=== PATIENT | male | born 1960 | race Caucasian/White ===

== ENCOUNTER 2017-06-05 16:05 | Inpatient (IN) | payer OTHER ==
[~2017-06-05] VITALS: Ht 170.2 cm; Wt 97.5 kg
[~2017-06-05 16:05] MED LIST: AUGMENTIN 875 M1 TAB PO; BACTRIM DS 8001 TAB PO; JANUVIA 100MG100 MG PO; KEFLEX500 MG PO; METFORMIN HCL500 MG PO; METFORMIN1000 MG PO; MOTRIN800 MG PO
[2017-06-05 16:39] LABS: ABSOLUTE BASOPHIL COUNT 0.1 /CUMM (0.0-0.2); ABSOLUTE EOSINOPHIL COUNT 0.1 /CUMM (0.0-0.7); ABSOLUTE GRANULOCYTE CT 18.9 /CUMM (1.4-6.5); ABSOLUTE LYMPH COUNT 1.4 /CUMM (1.2-3.4); ABSOLUTE MONOCYTE COUNT 1.4 /CUMM (0.10-0.60); BASOPHIL % 0.3 % (0.0-2.0); EOSINOPHIL % 0.2 % (0-5); GRANULOCYTE % 86.4 % (42.2-75.2); HEMATOCRIT 39.2 % (42-52); MEAN CORPUSCULAR HGB 32.2 PG (27.0-31.0); MEAN CORPUSCULAR HGB CONC 34.2 G/DL (33.0-37.0); MEAN CORPUSCULAR VOLUME 94.1 FL (80.0-94.0); MEAN PLATELET VOLUME 9.1 FL (7.4-10.4); PLATELET COUNT 256 /CUMM (130-400); RED BLOOD CELL CT 4.16 /CUMM (4.70-6.10); WHITE BLOOD CELL COUNT 21.9 /CUMM (4.8-10.8)
--- NOTE | 2017-06-05 17:28 | RADIOLOGY REPORT ---
EXAMINATION: XR TOES, LEFT CLINICAL INFORMATION: Left second necrotic toe COMPARISON: None TECHNIQUE: 3 views of the left toes were obtained. FINDINGS: There is prominent gas in the soft tissues which is centered at the second digit, although it extends in the dorsal soft tissues proximally along the metatarsal. There is prominent soft tissue swelling. There is no acute fracture or dislocation. No osseous erosion. IMPRESSION: Prominent soft tissue swelling of the forefoot with soft tissue gas surrounding the second digit and extending more proximally at the dorsum of the foot along the metatarsal level. No erosive osseous changes are noted. This critical result was discussed with Zack Alvares by telephone at 06/05/2017 5:22 PM and it was ascertained that the content and urgency of the report was understood at the time of direct communication.
--- NOTE | 2017-06-05 19:07 | ED ANKLE/FOOT INJURY COMPLAINT ---
History of Present Illness General Chief Complaint: Foot or Ankle Injury Stated Complaint: L FOOT PAIN Source: patient, old records Exam Limitations: no limitations Vital Signs & Intake/Output Vital Signs & Intake/Output Vital Signs Date Time Temp Pulse Resp B/P B/P Pulse O2 O2 Flow FiO2 Mean Ox Delivery Rate 06/05 2000 98.4 105 18 132/72 97 Room Air 06/05 1618 99.7 70 18 150/80 95 Room Air Allergies Coded Allergies: NO KNOWN ALLERGIES (04/20/15) Reconcile Medications AMOXICILLIN/POTASSIUM CLAV (Augmentin 875-125 Tablet) 875 MG/125 MG TAB 1 TAB PO BID Skin infection Ibuprofen (Motrin) 800 MG TAB 1 TAB PO Q8H PRN PAIN/SWELLING Metformin Hydrochloride (Metformin HCl) 500 MG TAB 1 TAB PO BID Diabetes mellitus Sitagliptin Phosphate (Januvia) 100 MG TAB 1 TAB PO DAILY diabetes mellitus Triage Note: 56 YO MALE TO TRIAGE FROM DR MALHOTRA FOR ?GANGRENE OF SECOND TOE ON L FOOT. STATES HX OF DIABETES. STATES HE NOTICIED AN ULCER ON HIS FOOT 2 DAYS AGO THAT HAS NOW SPEAD TO THE TOE. SECOND TOE ON L FOOT NOTED TO BE BLUE WITH LARGE ULCER. PT DENIES PAIN TO FOOT. Triage Nurses Notes Reviewed? yes Occurred: just prior to arrival Duration: day(s): (2), constant Timing: recent history Severity: severe Severity Numbers: 10 Pain/Injury Location: Left: Foot. Method of Injury: unknown No Modifying Factors: none Associated Symptoms: swelling, redness HPI: 56-year-old male with history of diabetes for which she is not on any medication sent in by primary care for evaluation of his left foot. He states that yesterday he first noticed an abrasion to his foot and discoloration to his left toe. He denies any known injury or trauma. He states that his toes normally have decreased sensation. He denies any fevers chills nausea vomiting abdominal pain. He does not check his blood sugar on a regular basis no chest pain or shortness of breath (Zack Umana) Past History Travel History Traveled to [place] past 21 day No Medical History Any Pertinent Medical History? 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 No (Zack Umana) Review of Systems Review of Systems Constitutional: Reports: see HPI. Comments Review of systems: See HPI, All other systems negative. Constitutional, no chills no fever, no malaise HEENT: no sore throat no congestion, no ear pain Cardiovascular: No chest pain , no palpitation Skin: see hpi Respiratory: No dyspnea no cough no sputum GI: No nausea no vomiting, no diarrhea, no bloating/constipation : No dysuria No hematuria, no frequency Muscle skeletal: No joint pain, no back pain, no neck pain, Neurologic: , no headache Psych: No stress no depression,. Heme/endocrine: No bruising no bleeding Immunology: No lymphadenopathy (Zack Umana) Physical Exam Physical Exam General Appearance: well developed/nourished, alert, awake Leg/Knee/Thigh Left: see below Comments: Well-developed well-nourished patient in no apparent distress. HEENT: Atraumatic, extraocular motion intact Neck: Supple, FROM Back: FROM Cardiovascular: Regular rate and rhythms no murmurs rubs or gallops, Respiratory: Chest nontender.There were no bony deformities, no asymmetry. No respiratory distress. Patient speaking in full complete sentences. Breath sounds clear to auscultation bilaterally: NO W/R/R Upper Extremities: full range of motion Hip/Pelvis: Atraumatic/Stable. FROM. Knee: Atraumatic/stable. FROM. No joint swelling, no effusion. Leg: There is redness noted to the anterior aspect of both the left knapp, no weeping, Nontender. 3+ B/L LE EDEMA, 5 out of 5 strength in the lower extremity, normal dorsiflexion of great toe bilaterally, gross sensation is intact, patellar tendon reflex 2+ bilaterally. Ankle/Foot: Swelling noted to the left foot on the left foot the left second toe is cold, purple with no sensation, there is discolorationg over the medial l1st toe as well, there is weeping discharge at the site of the 2 open areas on the left foot at the base of the l 2nd toe and l mid foot. No laxity on exam Pulses: Normal/equal DP/PT pulses bilaterally. Brisk cap refill Neuro: awake, alert, and oriented to person, place and time. There were no obvious focal neurologic abnormalities. Skin: Warm & dry;No appreciable rash on exposed skin Psych: Mood affect normal, normal memory normal judgment. (Dia BRENNER,Zack) Progress Differential Diagnosis: DVT, gout, fracture, dislocation, sprain, OSTEOMYELITIS, GANGRENE Plan of Care: Orders Procedure Date/time Status Nothing by Mouth 06/06 B Active Pathway - chart 06/05 2130 Active House Staff 06/05 2130 Active Patient Data 06/05 2130 Active Patient Data 06/05 2104 Active Intake & Output 06/05 1954 Active OXYGEN SETUP (GEN) 06/05 1925 Active Saline Lock 06/05 1925 Active Admit to inpatient 06/05 1925 Active Vital Signs 06/05 1925 Active Activity/Ambulation 06/05 1925 Active Code Status 06/05 1925 Active BLOOD CULTURE 06/05 1621 Active LACTIC ACID 06/05 1621 Complete WESTERGREN SED RATE 06/05 162 Complete COMPREHENSIVE METABOLIC PANEL 06/05 1621 Complete CBC WITHOUT DIFFERENTIAL 06/05 162 Complete VTE Mechanical Prophylaxis 06/05 UNK Active Vital Signs 06/05 UNK Active MISTAKE 06/05 UNK Active Intake & Output 06/05 UNK Active Hemoccult 06/05 UNK Active Laboratory Tests 06/05/17 1921: Lactic Acid Cancelled 06/05/17 1627: Anion Gap 14, Estimated GFR > 60, BUN/Creatinine Ratio 24.3, Glucose 234 H, Lactic Acid 1.6, Calcium 8.5, Total Bilirubin 1.1, AST 38, ALT 53, Alkaline Phosphatase 146 H, Total Protein 6.3, Albumin 2.9 L, Globulin 3.4, Albumin/ Globulin Ratio 0.9 L, CBC w Diff MAN DIFF ORDERED, RBC 4.16 L, MCV 94.1 H, MCH 32.2 H, RDW 13.0, MPV 9.1, Gran % 86.4 H, Lymphocytes % 6.5 L, Monocytes % 6.6, Eosinophils % 0.2, Basophils % 0.3, Absolute Granulocytes 18.9 H, Segmented Neutrophils 82 H, Band Neutrophils 3, Absolute Lymphocytes 1.4, Lymphocytes 4 L, Monocytes 11 H, Absolute Monocytes 1.4 H, Absolute Eosinophils 0.1, Absolute Basophils 0.1, Platelet Estimate ADEQUATE, Normocytic RBCs VERIFIED, Normochromic RBCs VERIFIED, PUBS MCHC 34.2, ESR Westergren 107 H Microbiology 06/05 1927 BLOOD: Blood Culture - RECD 06/05 1627 BLOOD: Blood Culture - RECD D/W PT HIS LABS AND XRAY FINDINGS, CALL PLACED TO PODIATRY, ultrasound ordered 1929 CASE D/W DR LORENZ advised to go ahead with IV antibiotics he will consult in the morning to make the patient nothing by mouth at midnight case d/w dr goodwin will admit Diagnostic Imaging: Viewed by Me: Radiology Read. Discussed w/RAD: Radiology Read. Radiology Impression: PATIENT: NAHOMI NOGUERA PRESENT AGE: 56 PATIENT ACCOUNT NO: [id number] : 61 LOCATION: [facility] ORDERING PHYSICIAN: Zack BRENNER SERVICE DATE: 06/05/17 EXAM TYPE: RAD - XRY-TOES, LEFT EXAMINATION: XR TOES, LEFT CLINICAL INFORMATION: Left second necrotic toe COMPARISON: None TECHNIQUE: 3 views of the left toes were obtained. FINDINGS: There is prominent gas in the soft tissues which is centered at the second digit, although it extends in the dorsal soft tissues proximally along the metatarsal. There is prominent soft tissue swelling. There is no acute fracture or dislocation. No osseous erosion. IMPRESSION: Prominent soft tissue swelling of the forefoot with soft tissue gas surrounding the second digit and extending more proximally at the dorsum of the foot along the metatarsal level. No erosive osseous changes are noted. This critical result was discussed with Zack Alvares by telephone at 06/05/2017 5:22 PM and it was ascertained that the content and urgency of the report was understood at the time of direct communication. DICTATED BY: Daquan Garza MD DATE/TIME DICTATED:06/05/171719 CASING COOKER:ANTONIO DATE/TIME TRANSCRIBED:06/05/171719 CONFIDENTIAL, DO NOT COPY WITHOUT APPROPRIATE AUTHORIZATION. <Electronically signed in Other Vendor System> SIGNED BY: Daquan Garza MD 06/05/171727 (Dia BRENNER,Zack) Departure Departure Time of Disposition: 1941 Disposition: HOME OR SELF CARE Condition: Stable Clinical Impression Primary Impression: Cellulitis Secondary Impressions: Diabetic neuropathy Referrals: Stephanie Nava DO (PCP/Family) Departure Forms: Customer Survey General Discharge Information Admission Note Spoke With: Shree Goodwin MD Documentation of Exam: Documentation of any treatments & extenuating circumstances including Concerns Regarding Discharge (functional status, medication knowledge or non-compliance, living conditions, etc.) that warrant an admission rather than observation: [ Podiatry consult IV antibiotics nothing by mouth at midnight trend labs and cultures premature discharge would BE medically harmful (Zack Umana) PA/FENCE SETTER Co-Sign Statement Statement: ED Attending supervision documentation- x I saw and evaluated the patient. I have also reviewed all the pertinent lab results and diagnostic results. I agree with the findings and the plan of care as documented in the PA's/FENCE SETTER's documentation. Diabetic foot with gas gangrene/ necrosis. [] I have reviewed the ED Record and agree with the PA's/FENCE SETTER's documentation. [] Additions or exceptions (if any) to the PAs/FENCE SETTER's note and plan are summarized below: [] (Bashir RODRIGUEZ,Irving)
--- NOTE | 2017-06-05 20:31 | ULTRASOUND REPORT ---
EXAMINATION: US TRIPLEX LOWER EXTREMITY, LEFT CLINICAL INFORMATION: Left lower extremity swelling and pain. COMPARISON: None TECHNIQUE: Color-flow triplex imaging with spectral analysis and compression Doppler were performed on the left lower extremity. FINDINGS: Respiratory variation, normal compression and augmented flow are noted throughout the left lower extremity. The visualized common femoral vein, superficial femoral vein, profunda femoral vein, popliteal vein and midcalf peroneal and posterior tibial venous segments show no evidence of deep venous thrombosis. There is no Hoyt's cyst. Enlarged left inguinal lymph nodes measuring up to 3.4 cm in size. IMPRESSION: - Normal triplex scan without evidence of deep venous thrombosis involving the left lower extremity. - Enlarged left inguinal lymph nodes measuring up to 3.4 cm in size.
--- NOTE | 2017-06-05 21:05 | History & Physical ---
Sheron Saenz 06/05/17 2105: General Information and HPI MD Statement: I have seen and personally examined NAHOMI NOGUERA and documented this H&P. Source of Information: patient Exam Limitations: no limitations History of Present Illness: This is a 56-year-old gentleman with past medical history significant for diabetes, prior right lower extremity cellulitis with abscesses required I&D was sent to the hospital for further evaluation of gangrene of left second toe. According to the patient, he was diagnosed with diabetes 2 years ago. He was started on metformin 1000 twice a day. He stopped taking his metformin after 5 months because he did not have insurance to cover the medication. Since then he has not been taking any medication or checking his blood glucose level. He states that he stepped on pieces of glass in January and developed wound which he tried to manage conservatively. On the day before presentation, he noticed worsening of the wound on his left leg. In the morning of presentation, he noticed large blistered on dorsal aspect of his left foot and also noticed discoloration of his left second toe. He reports having chills in the morning. Reports having polyuria recently. He also has baseline decreased sensation in both of his lower extremities. Denies any fever, visual change, polydipsia, abdominal pain, urinary symptoms. Denies smoking, EtOH or illicit drug use. 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 self Services at Home: None Primary Language: Wolof Living Will? no Functional Ability ADLs Independent: dressing, eating, toileting, bathing. Ambulation: independent IADLs Independent: shopping, housework, finances, food prep, telephone, transportation , medication admin. Review of Systems Review of Systems Constitutional: Reports: see HPI, chills. Exam & Diagnostic Data Last 24 Hrs of Vital Signs/I&O Vital Signs Date Time Temp Pulse Resp B/P B/P Pulse O2 O2 Flow FiO2 Mean Ox Delivery Rate 06/06 0652 98.1 114 18 156/70 95 Room Air 06/05 2344 98.3 107 18 140/70 94 Room Air 06/05 2315 Room Air 06/05 2209 99.0 108 18 138/69 98 Room Air 06/05 2000 98.4 105 18 132/72 97 Room Air 06/05 1618 99.7 70 18 150/80 95 Room Air Intake & Output 06/06 1600 06/06 0800 06/06 0000 Intake Total 120 Output Total 400 Balance -400 120 Intake, Oral 120 Output, Urine 400 Patient 215 lb Weight Weight Reported by Patient Measurement Method Physical Exam General Appearance Alert, Oriented X3, Cooperative, No Acute Distress Skin purple/black Discoloration of left second toe w/o any sensation on the toe, no crepitus noted, large ruptured bulae noted on dorsal aspect of left foot w/ black blue discoloration and serosanguinos discharge, approx 2 cm bullae noted on plantar aspect of left foot with an area of fluctuance, erythema from left foot extending up to left ant leg Skin Temp/Moisture Exam: Warm/Dry Sepsis Skin Exam (color): Normal for Ethnicity, normal capillary refill HEENT Atraumatic, PERRLA, EOMI, Mucous Membr. moist/pink Neck Supple, No JVD, No thryomegaly, +2 Carotid Pulse wo Bruit, No LAD Lymphatic Cervical nl Cardiovascular Regular Rate, Normal S1, Normal S2, No Murmurs, Gallops, Rubs Lungs Clear to Auscultation, Normal Air Movement Abdomen Normal Bowel Sounds, Soft, No Tenderness, No Hepatospenomegaly, No Masses, distended Neurological Normal Speech, Strength at 5/5 X4 Ext, Normal Tone, Sensation Intact, Cranial Nerves 3-12 NL, Reflexes 2+ Extremities LLE edema, decreased pulse in LLE, see skin exam, NL sensation in LE b/l, NL pulse in RLE, no edema in RLE Vascular decreased pulse in left lower extremity. Sepsis Peripheral Pulse Location: Radial Sepsis Cap Refill Exam: <2 Sec Last 24 Hrs of Labs/Francis: Laboratory Tests 06/05/171920: Lactic Acid Cancelled 06/05/171626: Anion Gap 14, Estimated GFR > 60, BUN/Creatinine Ratio 24.3, Glucose 234 H, Hemoglobin A1c Pending, Lactic Acid 1.6, Calcium 8.5, Total Bilirubin 1.1, AST 38, ALT 53, Alkaline Phosphatase 146 H, Total Protein 6.3, Albumin 2.9 L, Globulin 3.4, Albumin/Globulin Ratio 0.9 L, CBC w Diff MAN DIFF ORDERED, RBC 4.16 L, MCV 94.1 H, MCH 32.2 H, RDW 13.0, MPV 9.1, Gran % 86.4 H, Lymphocytes % 6.5 L, Monocytes % 6.6, Eosinophils % 0.2, Basophils % 0.3, Absolute Granulocytes 18.9 H, Segmented Neutrophils 82 H, Band Neutrophils 3, Absolute Lymphocytes 1.4, Lymphocytes 4 L, Monocytes 11 H, Absolute Monocytes 1.4 H, Absolute Eosinophils 0.1, Absolute Basophils 0.1, Platelet Estimate ADEQUATE, Normocytic RBCs VERIFIED, Normochromic RBCs VERIFIED, PUBS MCHC 34.2, ESR Westergren 107 H Microbiology 06/05 1927 BLOOD: Blood Culture - RECD 06/05 1627 BLOOD: Blood Culture - RECD Diagnostic Data Other Results Left toe x-ray: Prominent soft tissue swelling of the forefoot with soft tissue gas surrounding the second digit and extending more proximally at the dorsum of the foot along the metatarsal level. No erosive osseous changes are noted. Left lower extremity venous Doppler: - Normal triplex scan without evidence of deep venous thrombosis involving the left lower extremity. - Enlarged left inguinal lymph nodes measuring up to 3.4 cm in size. Assessment/Plan Assessment: This is a 56-year-old gentleman with past medical history significant for past medical history significant for diabetes, prior right lower extremity cellulitis with abscesses required I&D was sent to the hospital for further evaluation of gangrene of left second toe. Labs reveal leukocytosis to 21.9 with bandemia, elevated ESR to 107. Imaging positive for soft tissue swelling and gas surrounding second digit of the left foot. Problem list #Left foot second digit cellulitis with possible gas gangrene #Sepsis likely secondary to cellulitis with possible gas gangrene #Diabetic foot #Possible peripheral vascular disease #Rule out osteomyelitis is #Diabetes with neuropathy noncompliant with medications Plan amputation in the morning clindamycin and Zosyn As Ranked By This Provider Problem List: 1. Diabetes mellitus 2. Cellulitis 3. Diabetic neuropathy 4. Gas gangrene Core Measures/Misc (03/09) Acute Coronary Syndrome ACS Diagnosis: No Congestive Heart Failure Congestive Heart Failure Diagnosis No Cerebrovascular Accident CVA/TIA Diagnosis: No VTE (View Protocol) VTE Risk Factors Age>40 No Mechanical VTE Prophylaxis d/t N/A MechProphylax Ordered No VTE Pharm Prophylaxis d/t NA PharmProphylax ordered Sepsis (View protocol) Sepsis Present: Yes Reed RODRIGUEZ, [facility] 06/06/17 0105: Attending MD Review Statement Attending Statement Attending MD Statement: examined this patient, discuss w/resident/PA/FIRESTOPPER INSTALLER, agreed w/resident/PA/FIRESTOPPER INSTALLER, reviewed images, amended to note Attending Assessment/Plan: 56 yo M with h/o T2DM c/b neuropathy not on any meds, previous right leg cellulitis with abscess requiring I&D (2014), is sent in by PCP for evaluation of gangrene of left foot second toe. Patient reports glass injury to plantar aspect of left 2nd toe earlier in January this year. He felt the wound was healing well. 2 days prior he noticed an abrasion to his left 2nd toe and this gradually progressed to a blister with bluish hue to the 2nd toe and diffuse erythema extending to the lower leg today. He used to follow Dr. Mcqueen for his diabetes, was on metformin and sitagliptin, this was changed to Tradjenta but patient could not afford it (insurance issues) so he was switched back to metformin which patient states he has not been taking for the past 1 year. He does report reduced sensation to his feet bilaterally. He is a nonsmoker and denies underlying cardiac or vascular problems. No other recent trauma in the past 1 week that patient can recollect. Vitals: Tmax 99, HR 100-110, BP 140/70, sats 94% RA. Exam: AAO, obese male in no distress, is anxious of losing his toe, no pallor or lymphadenopathy, Chest clear, Heart S1S2 regular, Abd soft, distended, NT. Skin: warm and dry, Capillary refill < 2 secs. LE: Left foot - diffuse swelling with 2nd toe necrotic/gangrenous purple discoloration, cold, no sensation, ruptured bullae noted to the dorsal aspect of the foot with reddish blue discoloration and serosanguinous discharge, with open areas noted to the plantar aspect and an area of fluctuance on the plantar aspect of the base of the great toe. Erythema is extending into the left anterior leg with diffuse swelling of the leg. Peripheral pulse difficult to palpate on the left foot, well felt on the right foot. Labs: WBC 21.9, bands 3, ESR 107, macrocytic anemia, glucose 234, lactic acid 1.6. Left foot xray: prominent soft tissue swelling of forefoot with soft tissue gas surrounding second digit and extending proximally at dorsum of foot along the metatarsal level, no erosive osseous changes. Left LE doppler- no DVT. Assessment and plan: 1. Sepsis (leukocytosis, tachycardia) 2. Left foot second toe possible gas gangrene with cellulitis 3. Diabetic foot 4. Rule out underlying peripheral vascular disease 5. Rule out osteomyelitis 6. Type 2 diabetes with neuropathy 7. Noncompliance with medications - Admit to general medicine - Blood cultures x2 - Case was discussed by ER with Dr. Henriquez - NPO after midnight for OR in AM, patient will need debridement and amputation - Patient received IV ceftaz and vanco in the ER, we will initiate IV Zosyn and clindamycin to cover for group A strep, clostridium, aerobes and anaerobes. - ID consult to help with antibiotic choice - LE arterial doppler - Accuchecks, check HbA1c, initiate insulin NPO SS - Endo consult to help with diabetes management - Gentle hydration. - Reiterated compliance with medications and outpatient follow up with endocrine for diabetes management. DVT ppx Lovenox. Full code.
[2017-06-05 23:44] VITALS: BP 140/70
--- NOTE | 2017-06-06 01:05 | Admission Certification ---
Admission Certification Certification Statement - As attending physician, I certify that at the time of - admission, based on clinical presentation, severity of - symptoms, need for further diagnostic testing and - therapeutic interventions, and risk of adverse outcomes - without in-hospital treatment, in my clinical assessment, - this patient requires an acute hospital stay for a minimum - of two nights or longer. I have also considered psychsocial - factors such as support system, advanced age, financial - issues, cognitive issues, and failed out-patient treatments, - past re-admission history, safety of patient, and lack of - compliance as applicable. Specific rationale supporting this admission is: Left foot 2nd toe gangrene with cellulitis.
[2017-06-06 06:52] VITALS: BP 156/70
--- NOTE | 2017-06-06 08:15 | PN- Housestaff ---
See Addendum Subjective Follow-up For: Gangrenous left foot Uncontrolled diabetes Subjective: Seen and examined Very upset about the foot, started around friday. Denies any pain currently, requestiong to eat. Aware of the procedure, dont want to loose great toe. Review of Systems Constitutional: Reports: see HPI. Comments: ROS negative except the above Objective Last 24 Hrs of Vital Signs/I&O Vital Signs Date Time Temp Pulse Resp B/P B/P Pulse O2 O2 Flow FiO2 Mean Ox Delivery Rate 06/06 0652 98.1 114 18 156/70 95 Room Air 06/05 2344 98.3 107 18 140/70 94 Room Air 06/05 2315 Room Air 06/05 2209 99.0 108 18 138/69 98 Room Air 06/05 2000 98.4 105 18 132/72 97 Room Air 06/05 1618 99.7 70 18 150/80 95 Room Air Intake & Output 06/06 1600 06/06 0800 06/06 0000 Intake Total Output Total Balance Patient 97.522 kg Weight Weight Reported by Patient Measurement Method Physical Exam General Appearance: Alert, Oriented X3, Cooperative Skin: No Breakdown HEENT: Atraumatic, PERRLA, EOMI Neck: Supple Cardiovascular: Normal S1, Normal S2 Lungs: Clear to Auscultation, Normal Air Movement Abdomen: Normal Bowel Sounds, Soft, No Tenderness Neurological: Normal Speech, Strength at 5/5 X4 Ext, sensation over the left foot are lost, pulses 2+ Extremities: No Clubbing, No Cyanosis, 3+ edema over the left foot, bluish discoloration of the left foot and toes Vascular: Normal Pulses Current Medications: Current Medications Sig/Musa Start time Last Medication Dose Route Stop Time Status Admin Ceftazidime 1,000 MG IQ8 06/06 0000 DC 06/06 IV 0005 Ceftazidime 0 .STK-MED ONE 06/05 1950 DC .ROUTE Ceftazidime 1,000 MG ONCE ONE 06/05 1930 DC 06/05 IV 06/05 Clindamycin 900 MG Q8H 06/06 0800 AC Dextrose/Water 50 ML IV Enoxaparin Sodium 40 MG DAILY 06/06 1000 AC SC Insulin Aspart 0 TIDAC 06/06 08 CAN SC Insulin Aspart 6 UNITS ONCE ONE 06/05 2245 CAN SC 12/14 2246 Insulin Human Regular 10 UNITS .STK-MED ONE 06/06 0003 DC IV 06/06 0004 Insulin Human Regular 0 Q6 06/05 2359 06/06 SC 0635 Non-Formulary 0 SEE ADMIN CRITERIA 06/06 0530 CAN Medication ANY Piperacillin Sod/ 4.5 GM Q8H 06/06 0800 DC Tazobactam Sod IV Sodium Chloride 50 ML Piperacillin Sod/ 4.5 GM Q8H 06/06 0800 AC 06/06 Tazobactam Sod IV 0807 Dextrose/Water 100 ML Sodium Chloride 1,000 ML Q13H 06/06 0645 AC 06/06 IV 06/06 1944 0806 Vancomycin HCl 1,500 MG Q12 06/06 1000 CAN Sodium Chloride 250 ML IV Vancomycin HCl 1,000 MG ONCE ONE 06/05 1930 DC 06/05 Sodium Chloride 250 ML IV 06/05 Last 24 Hrs of Lab/Francis Results Last 24 Hrs of Labs/Mics: Laboratory Tests 06/06/17 1225: Urinalysis LIGHT H, Urine Color KI, Urine Clarity HAZY H, Urine pH 6.0, Ur Specific [place] 1.020, Urine Protein 30 H, Urine Ketones >=80, Urine Nitrite NEG, Urine Bilirubin NEG, Urine Urobilinogen >=8.0 H, Ur Leukocyte Esterase NEG , Ur Microscopic SEDIMENT EXAMINED, Urine RBC 1-3, Urine WBC 1-3 H, Ur Epithelial Cells FEW, Urine Bacteria RARE H, Hyaline Casts RARE H, Urine Mucus FEW, Urine Hemoglobin NEG, Urine Glucose 500 H 06/06/17 1048: Anion Gap 13, Estimated GFR > 60, BUN/Creatinine Ratio 20.0, CBC w Diff MAN DIFF ORDERED, RBC 3.74 L, MCV 94.6 H, MCH 32.4 H, RDW 13.1, MPV 9.1, Gran % 84.0 H, Lymphocytes % 7.4 L, Monocytes % 8.3, Eosinophils % 0.3, Basophils % 0, Absolute Granulocytes 14.4 H, Segmented Neutrophils 74, Band Neutrophils 9 H, Absolute Lymphocytes 1.3, Lymphocytes 6 L, Monocytes 10 H, Absolute Monocytes 1.4 H, Absolute Eosinophils 0.1, Absolute Basophils 0, Metamyelocytes 1, Platelet Estimate ADEQUATE, Hypochromic-Microcytic 1+, Anisocytosis 1+, PUBS MCHC 34.2 Microbiology 06/06 1421 EXTREMITIE: Gross Specimen Examination - CAN Cancelled: Cancelled via OE: 06/06 142 EXTREMITIE: Gram Stain - CAN Cancelled: Cancelled via OE: 06/06 142 EXTREMITIE: Gross Specimen Examination - CAN Cancelled: Cancelled via OE: 06/06 142 EXTREMITIE: Gram Stain - CAN Cancelled: Cancelled via OE: 06/06 141 EXTREMITIE: Gross Specimen Examination - RECD 06/06 1415 EXTREMITIE: Gram Stain - RECD 06/06 1415 EXTREMITIE: Gross Specimen Examination - CAN Cancelled: Cancelled via OE: 06/06 141 EXTREMITIE: Gram Stain - CAN Cancelled: Cancelled via OE: 06/06 1410 EXTREMITIE: Gross Specimen Examination - RECD 06/06 1410 EXTREMITIE: Gram Stain - RECD 06/06 1410 EXTREMITIE: Gross Specimen Examination - CAN Cancelled: Cancelled via OE: 06/06 1410 EXTREMITIE: Gram Stain - CAN Cancelled: Cancelled via OE: 06/05 1927 BLOOD: Blood Culture - RES Assessment/Plan Assessment: 56 yo M with h/o T2DM c/b neuropathy not on any meds, previous right leg cellulitis with abscess requiring I&D (2014), is sent in by PCP for evaluation of gangrene of left foot second toe. Injury to left 2nd toe on 4 months ago. Around friday started noticing discoloration. VS at admission Tmax 99, HR 100- 110, BP 140/70, sats 94% RA. Exam: AAO, obese male in no distress, is anxious of losing his toe, no pallor or lymphadenopathy, Chest clear, Heart S1S2 regular, Abd soft, distended, NT. Skin: warm and dry, Capillary refill < 2 secs.LE: Left foot - diffuse swelling with 2nd toe necrotic/gangrenous purple discoloration, cold, no sensation, ruptured bullae noted to the dorsal aspect of the foot with reddish blue discoloration and serosanguinous discharge, with open areas noted to the plantar aspect and an area of fluctuance on the plantar aspect of the base of the great toe. Erythema is extending into the left anterior leg with diffuse swelling of the leg. Peripheral pulse difficult to palpate on the left foot, well felt on the right foot.Labs: WBC 21.9, bands 3, ESR 107, macrocytic anemia, glucose 234, lactic acid 1.6. Left foot xray: prominent soft tissue swelling of forefoot with soft tissue gas surrounding second digit and extending proximally at dorsum of foot along the metatarsal level, no erosive osseous changes. Left LE doppler- no DVT. 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 Noncompliance with diabetic medications being the major contributing factor. He did have leukocytosis of 22 with evidence of gas in the soft tissues on Xray. He was kept NPO overnight for OR. * Underwent surgical debridement by * He needs metatarsal amputation in the next 4 days * Started on IV zosyn with mone --- transitioned to IV unasyn * Follow up OR cultures and adjust antibiotics Uncontrolled diabetes Lost follow up due to financial issues. He is started on insulin sliding scale and levemir 15 units at bedtime. HbA1C 11%. * follow up sugars in am * on board DVT prophylaxis [place] lovenox Code status Full Code Problem List: 1. Diabetes mellitus 2. Diabetic neuropathy 3. Gas gangrene Pain Ratin Pain Location: left foot Pain Goal: Pain 4 or less Pain Plan: tyenol, percocet Tomorrow's Labs & Rationales: cbc , bep
--- NOTE | 2017-06-06 11:09 | RADIOLOGY REPORT ---
EXAMINATION: XR PORTABLE CHEST CLINICAL INFORMATION: Preoperative COMPARISON: No priors TECHNIQUE: Portable frontal view of the chest was obtained. FINDINGS: Heart size is within normal limits. Slight prominence to the superior mediastinum is likely related to AP technique. Thoracic aorta is normal in size and contour. Pulmonary vascularity is within normal limits. The lungs are grossly clear. No focal consolidation or atelectasis is seen. No acute bony abnormality is identified. IMPRESSION: Chest x-ray shows normally expanded and grossly clear lungs with no acute findings.
--- NOTE | 2017-06-06 13:17 | Cons- Endocrinology ---
General Information and HPI Consulting Request Date of Consult: 06/06/17 Requested By: medical team Reason for Consult: DM managment Source of Information: patient Exam Limitations: no limitations History of Present Illness: patient has had diabetes type 2, however, he hasn't been on medications due to cost and insurance reason. He presented with lesion in his left foot x 2 days. He was admitted for left second toe gangrene with cellulitis. He has been kept NPO for procedure. Now he is on RISS every 6 hours and his FSGs were 214, 298 and 189. Allergies/Medications Allergies: Coded Allergies: NO KNOWN ALLERGIES (04/20/15) Home Med List: No Known Home Medications Review of Systems Review of Systems Constitutional: Reports: see HPI. Cardiovascular: Denies: chest pain. Respiratory: Denies: short of breath. GI: Denies: abdominal pain. Musculoskeletal: Reports: see HPI (left foot lesion). Hematologic/Endocrine: Denies: polyuria, polydipsia. 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 Home Who Do You Live With? self Services at Home: None Primary Language: Occitan Smoking Status: Never Smoked Living Will? no Functional Ability ADLs Independent: dressing, eating, toileting, bathing. Ambulation: independent IADLs Independent: shopping, housework, finances, food prep, telephone, transportation , medication admin. Exam & Diagnostic Data Last 24 Hrs of Vital Signs/I&O Vital Signs Date Time Temp Pulse Resp B/P B/P Pulse O2 O2 Flow FiO2 Mean Ox Delivery Rate 06/06 0652 98.1 114 18 156/70 95 Room Air 06/05 2344 98.3 107 18 140/70 94 Room Air 06/05 2315 Room Air 06/05 2209 99.0 108 18 138/69 98 Room Air 06/05 2000 98.4 105 18 132/72 97 Room Air 06/05 1618 99.7 70 18 150/80 95 Room Air Intake & Output 06/06 1600 06/06 0800 06/06 0000 Intake Total 0 120 Output Total 700 Balance -700 120 Intake, Oral 0 120 Output, Urine 700 Patient 215 lb Weight Weight Reported by Patient Measurement Method Physical Exam General Appearance: no apparent distress Neck: normal inspection Respiratory: lungs clear Cardiovascular: regular rate/rhythm Gastrointestinal: soft, non-tender Extremities: left feet swelling with gangrene changes in 2nd toe. Labs/Francis Results: Laboratory Tests 06/06 06/06 1225 1048 Chemistry Sodium (137 - 145 mmol/L) 134 L Potassium (3.5 - 5.1 mmol/L) 3.7 Chloride (98 - 107 mmol/L) 96 L Carbon Dioxide (22 - 30 mmol/L) 24 Anion Gap (5 - 16) 13 BUN (9 - 20 mg/dL) 14 Creatinine (0.7 - 1.2 mg/dL) 0.7 Estimated GFR (>60 ml/min) > 60 BUN/Creatinine Ratio (7 - 25 %) 20.0 Hematology CBC w Diff MAN DIFF ORDERED WBC (4.8 - 10.8 /CUMM) 17.1 H RBC (4.70 - 6.10 /CUMM) 3.74 L Hgb (14.0 - 18.0 G/DL) 12.1 L Hct (42 - 52 %) 35.4 L MCV (80.0 - 94.0 FL) 94.6 H MCH (27.0 - 31.0 PG) 32.4 H RDW (11.5 - 14.5 %) 13.1 Plt Count (130 - 400 /CUMM) 250 MPV (7.4 - 10.4 FL) 9.1 Gran % (42.2 - 75.2 %) 84.0 H Lymphocytes % (20.5 - 51.1 %) 7.4 L Monocytes % (1.7 - 9.3 %) 8.3 Eosinophils % (0 - 5 %) 0.3 Basophils % (0.0 - 2.0 %) 0 Absolute Granulocytes (1.4 - 6.5 /CUMM) 14.4 H Segmented Neutrophils (42.2 - 75.2 %) 74 Band Neutrophils (0.0 - 5.0 %) 9 H Absolute Lymphocytes (1.2 - 3.4 /CUMM) 1.3 Lymphocytes (20.5 - 51.1 %) 6 L Monocytes (1.7 - 9.3 %) 10 H Absolute Monocytes (0.10 - 0.60 /CUMM) 1.4 H Absolute Eosinophils (0.0 - 0.7 /CUMM) 0.1 Absolute Basophils (0.0 - 0.2 /CUMM) 0 Metamyelocytes (0.0 - 1.0 %) 1 Platelet Estimate (ADEQUATE) ADEQUATE Hypochromic-Microcytic 1+ Anisocytosis 1+ PUBS MCHC (33.0 - 37.0 G/DL) 34.2 Urines Urinalysis LIGHT H Urine Color (YEL,AMB,STR) KI Urine Clarity (CLEAR) HAZY H Urine pH (5.0 - 8.0) 6.0 Ur Specific [place] (1.001 - 1.035) 1.020 Urine Protein (NEG,<30 MG/DL) 30 H Urine Ketones (NEG) >=80 Urine Nitrite (NEG) NEG Urine Bilirubin (NEG) NEG Urine Urobilinogen (0.1 - 1.0 EU/dl) >=8.0 H Ur Leukocyte Esterase (NEG) NEG Ur Microscopic SEDIMENT EXAMINED Urine RBC (0 - 5 /HPF) 1-3 Urine WBC (0 - 2 /HPF) 1-3 H Ur Epithelial Cells (NONE,FEW) FEW Urine Bacteria (NEG/NONE) RARE H Hyaline Casts (0/LPF) RARE H Urine Mucus (FEW,NONE) FEW Urine Hemoglobin (NEG) NEG Urine Glucose (N MG/DL) 500 H 06/05 1627 Chemistry Sodium (137 - 145 mmol/L) 137 Potassium (3.5 - 5.1 mmol/L) 3.7 Chloride (98 - 107 mmol/L) 96 L Carbon Dioxide (22 - 30 mmol/L) 27 Anion Gap (5 - 16) 14 BUN (9 - 20 mg/dL) 17 Creatinine (0.7 - 1.2 mg/dL) 0.7 Estimated GFR (>60 ml/min) > 60 BUN/Creatinine Ratio (7 - 25 %) 24.3 Glucose (65 - 99 mg/dL) 234 H Hemoglobin A1c (4.2 - 5.8 %) 11.0 H Lactic Acid (0.7 - 2.1 mmol/L) Cancelled 1.6 Calcium (8.4 - 10.2 mg/dL) 8.5 Total Bilirubin (0.2 - 1.3 mg/dL) 1.1 AST (17 - 59 U/L) 38 ALT (21 - 72 U/L) 53 Alkaline Phosphatase (< 127 U/L) 146 H Total Protein (6.3 - 8.2 g/dL) 6.3 Albumin (3.5 - 5.0 g/dL) 2.9 L Globulin (1.9 - 4.2 gm/dL) 3.4 Albumin/Globulin Ratio (1.1 - 2.2 %) 0.9 L Hematology CBC w Diff MAN DIFF ORDERED WBC (4.8 - 10.8 /CUMM) 21.9 H RBC (4.70 - 6.10 /CUMM) 4.16 L Hgb (14.0 - 18.0 G/DL) 13.4 L Hct (42 - 52 %) 39.2 L MCV (80.0 - 94.0 FL) 94.1 H MCH (27.0 - 31.0 PG) 32.2 H RDW (11.5 - 14.5 %) 13.0 Plt Count (130 - 400 /CUMM) 256 MPV (7.4 - 10.4 FL) 9.1 Gran % (42.2 - 75.2 %) 86.4 H Lymphocytes % (20.5 - 51.1 %) 6.5 L Monocytes % (1.7 - 9.3 %) 6.6 Eosinophils % (0 - 5 %) 0.2 Basophils % (0.0 - 2.0 %) 0.3 Absolute Granulocytes (1.4 - 6.5 /CUMM) 18.9 H Segmented Neutrophils (42.2 - 75.2 %) 82 H Band Neutrophils (0.0 - 5.0 %) 3 Absolute Lymphocytes (1.2 - 3.4 /CUMM) 1.4 Lymphocytes (20.5 - 51.1 %) 4 L Monocytes (1.7 - 9.3 %) 11 H Absolute Monocytes (0.10 - 0.60 /CUMM) 1.4 H Absolute Eosinophils (0.0 - 0.7 /CUMM) 0.1 Absolute Basophils (0.0 - 0.2 /CUMM) 0.1 Platelet Estimate (ADEQUATE) ADEQUATE Normocytic RBCs VERIFIED Normochromic RBCs VERIFIED PUBS MCHC (33.0 - 37.0 G/DL) 34.2 ESR Westergren (0 - 10 MM) 107 H Assessment/Plan Assessment/Plan patient has had diabetes type 2, however, he hasn't been on medications due to cost and insurance reason. He presented with lesion in his left foot x 2 days. He was admitted for left second toe gangrene with cellulitis. His HbA1c was 11%. While he is kept NPO and waiting for procedure he will continue the RISS. However, the coverage will starts when his FSG is more than 150. After he is back from the procedure and when he is ready to eat, please start him on Levemir 15 units daily at bedtime, Novolog coverage before meals and Novolog coverage at bedtime. Detail see the inpatient DM orders. We will continue monitoring his FSGs and adjust his DM regimen accordingly. Inpatient Diabetes Orders Before Each Meal: Bolus Insulin: Novolog < 80 mg/dl: no coverage 80-100 mg/dl: 4 units 101-120 mg/dl: 4 units 121-150 mg/dl: 4 units 151-200 mg/dl: 6 units 201-250 mg/dl: 8 units 251-300 mg/dl: 10 units 301-350 mg/dl: 12 units 351-400 mg/dl: 14 units > 400 mg/dl: 16 units Bedtime: Bolus Insulin: Novolog < 80 mg/dl: no coverage 80-100 mg/dl: no coverage 101-120 mg/dl: no coverage 121-150 mg/dl: no coverage 151-200 mg/dl: no coverage 201-250 mg/dl: no coverage 251-300 mg/dl: 2 units 301-350 mg/dl: 3 units 351-400 mg/dl: 4 units > 400 mg/dl: 5 units Consult Acknowledgment - Thank you for your consult request.
[2017-06-06 13:24] LABS: ABSOLUTE BASOPHIL COUNT 0 /CUMM (0.0-0.2); ABSOLUTE EOSINOPHIL COUNT 0.1 /CUMM (0.0-0.7); ABSOLUTE GRANULOCYTE CT 14.4 /CUMM (1.4-6.5); ABSOLUTE LYMPH COUNT 1.3 /CUMM (1.2-3.4); ABSOLUTE MONOCYTE COUNT 1.4 /CUMM (0.10-0.60); BASOPHIL % 0 % (0.0-2.0); EOSINOPHIL % 0.3 % (0-5); HEMATOCRIT 35.4 % (42-52); MEAN CORPUSCULAR HGB 32.4 PG (27.0-31.0); MEAN CORPUSCULAR HGB CONC 34.2 G/DL (33.0-37.0); MEAN CORPUSCULAR VOLUME 94.6 FL (80.0-94.0); MEAN PLATELET VOLUME 9.1 FL (7.4-10.4); PLATELET COUNT 250 /CUMM (130-400); RBC DISTRIBUTION WIDTH 13.1 % (11.5-14.5); RED BLOOD CELL CT 3.74 /CUMM (4.70-6.10); WHITE BLOOD CELL COUNT 17.1 /CUMM (4.8-10.8)
--- NOTE | 2017-06-06 15:14 | Operative Report ---
Operative/Inv Procedure Report Surgery Date: 06/06/17 Name of Procedure: 1 open incision and drainage deep to the deep fascia with exposure of the extensor tendon and tendon sheath multiple sites left foot 2 open, partial first and second ray resections left foot 3 intraoperative administration of ankle block anesthesia 4 excisional debridement Pre-Operative Diagnosis: 1 gas gangrene left foot 2 diabetic peripheral neuropathy Post-Operative Diagnosis: The same Estimated Blood Loss: less than 50ml Surgeon/Nail Technician Teacher: SAJAN LORENZ DPM Anesthesia: moderate sedation, block Operative/Procedure Note Note: After obtaining informed consent the patient was brought to the operating room and placed on the operating table in the supine position. The patient isn't securely fastened to the operating table utilizing safety belt. After administration of IV sedation, 10 mL of 0.5% Marcaine plain was infiltrated about the patient's left ankle. The left foot and ankle within scrubbed prepped and draped in usual aseptic manner. Attention directed to the left foot. Where necrosis was identified involving the first and second digits extending proximal to the metatarsophalangeal joints. There was necrosis identified extending over the dorsal lateral foot as well. A fishmouth-type incision encompassing the distal first and second rays were then marked out with a skin marker. The tissues were then incised with a 15 blade and the digits were disarticulated at the metatarsophalangeal joints. The dissection then continued proximally. Where the distal first and second metatarsals were exposed. Sagittal bone saw was utilized to resect the distal osseous segments. Specimen was sent for both microbiologic and pathologic inspection. The dissection was then carried down deep to the deep fascia with exposure of the extensor tendon and tendon sheath multiple sites, both proximally and distally. All necrotic nonviable infected tissue sharply evacuated from the wound bed. The tissue planes were noted to separate with blunt dissection and foul-smelling watery drainage was identified. Again, all necrotic and nonviable tissues were evacuated from the wound bed. Nipple was then irrigated with 3 L normal sterile saline fissure 50,000 units of bacitracin. Following this, the foot was redraped and surgeon's top of gestation clean gloves. Any bleeding vessels identified were cauterized or ligated as encountered. Nipple was then packed with a wet-to-dry a destiney dressing followed by 4 x 4's Kerlix and Paramjit wrap. The patient was noted tolerate both procedure and anesthesia well and the patient was transported from the operative room to recovery with vital signs stable.
--- NOTE | 2017-06-06 15:58 | Cons- Infect Disease ---
General Information and HPI Consulting Request Date of Consult: 06/06/17 Requested By: Vern Espinoza MD Reason for Consult: Infection left foot Source of Information: patient, old records History of Present Illness: This is a 56-year-old man with a history of diabetes, noncompliant with medication for the past year, status post an injury to his left foot 4 months prior to admission after stepping on glass, with a nonhealing wound on the plantar aspect of the foot since then, with intermittent drainage, admitted on June 05 with several days of swelling and erythema of the left foot, with blisters and discoloration of the second toe, with no pain, fevers or chills. On admission he was afebrile. Laboratory data revealed a white blood cell count of 22,000, glucose 234, BUN/creatinine 17 and 0.7, alkaline phosphatase 146, hemoglobin A1c 11. X-ray of the left revealed prominent soft tissue swelling with gas surrounding the second digit and extending more proximally at the dorsum of the foot, with no erosive osseous changes. Doppler of the left leg was negative. He was given Vancomycin and Ceftazidime in the emergency room and was then changed to Clindamycin and Zosyn. He has remained afebrile since admission. He was taken to the OR early this afternoon for amputation of the left first and second toes. At present he does not complain of pain in the left foot. Allergies/Medications Allergies: Coded Allergies: NO KNOWN ALLERGIES (04/20/15) Home Med List: No Known Home Medications Past History Travel History Traveled to [place] past 21 day No Medical History Blood Transfusion Hx: No Neurological: NONE EENT: NONE Cardiovascular: NONE Respiratory: NONE Gastrointestinal: NONE Hepatic: NONE Renal: NONE Musculoskeletal: NONE Psychiatric: NONE Endocrine: diabetes Blood Disorders: NONE Cancer(s): NONE CLAIM SERVICE REPRESENTATIVE/Reproductive: NONE History of MRSA: No History of VRE: No History of CDIFF: No Isolation History: Standard Tetanus Vaccine: 04/27/15 Surgical History Surgical History: tonsillectomy Family History Relations & Conditions If Any: SISTER FH: diabetes mellitus Psychosocial History Where Do You Live? Home Who Do You Live With? self Services at Home: None Primary Language: Tajik Smoking Status: Never Smoked Living Will? no Functional Ability ADLs Independent: dressing, eating, toileting, bathing. Ambulation: independent IADLs Independent: shopping, housework, finances, food prep, telephone, transportation , medication admin. Review of Systems Review of Systems Constitutional: Denies: chills, fever. All Other Systems: Reviewed and Negative Exam & Diagnostic Data Last 24 Hrs of Vital Signs/I&O Vital Signs Date Time Temp Pulse Resp B/P B/P Pulse O2 O2 Flow FiO2 Mean Ox Delivery Rate 06/06 0652 98.1 114 18 156/70 95 Room Air 06/05 2344 98.3 107 18 140/70 94 Room Air 06/05 2315 Room Air 06/05 2209 99.0 108 18 138/69 98 Room Air 06/05 2000 98.4 105 18 132/72 97 Room Air 06/05 1618 99.7 70 18 150/80 95 Room Air Intake & Output 06/06 1600 06/06 0800 06/06 0000 Intake Total 0 120 Output Total 700 Balance -700 120 Intake, Oral 0 120 Output, Urine 700 Patient 215 lb Weight Weight Reported by Patient Measurement Method Physical Exam Other Physical Findings: Afebrile. He is awake and alert in no acute distress. Skin reveals no rash. HEENT negative. Neck is supple with no adenopathy. Lungs are clear. Heart regular rhythm with no murmur. Abdomen is soft, nontender with positive bowel sounds. Back no CVA tenderness. Extremities left foot dressing intact with mild erythema and edema of the left leg; no cyanosis, clubbing or edema of the right leg. Neuro neuropathy both feet. Last 24 Hours of Lab Results: Laboratory Tests 06/06 06/06 1225 1048 Chemistry Sodium (137 - 145 mmol/L) 134 L Potassium (3.5 - 5.1 mmol/L) 3.7 Chloride (98 - 107 mmol/L) 96 L Carbon Dioxide (22 - 30 mmol/L) 24 Anion Gap (5 - 16) 13 BUN (9 - 20 mg/dL) 14 Creatinine (0.7 - 1.2 mg/dL) 0.7 Estimated GFR (>60 ml/min) > 60 BUN/Creatinine Ratio (7 - 25 %) 20.0 Hematology CBC w Diff MAN DIFF ORDERED WBC (4.8 - 10.8 /CUMM) 17.1 H RBC (4.70 - 6.10 /CUMM) 3.74 L Hgb (14.0 - 18.0 G/DL) 12.1 L Hct (42 - 52 %) 35.4 L MCV (80.0 - 94.0 FL) 94.6 H MCH (27.0 - 31.0 PG) 32.4 H RDW (11.5 - 14.5 %) 13.1 Plt Count (130 - 400 /CUMM) 250 MPV (7.4 - 10.4 FL) 9.1 Gran % (42.2 - 75.2 %) 84.0 H Lymphocytes % (20.5 - 51.1 %) 7.4 L Monocytes % (1.7 - 9.3 %) 8.3 Eosinophils % (0 - 5 %) 0.3 Basophils % (0.0 - 2.0 %) 0 Absolute Granulocytes (1.4 - 6.5 /CUMM) 14.4 H Segmented Neutrophils (42.2 - 75.2 %) 74 Band Neutrophils (0.0 - 5.0 %) 9 H Absolute Lymphocytes (1.2 - 3.4 /CUMM) 1.3 Lymphocytes (20.5 - 51.1 %) 6 L Monocytes (1.7 - 9.3 %) 10 H Absolute Monocytes (0.10 - 0.60 /CUMM) 1.4 H Absolute Eosinophils (0.0 - 0.7 /CUMM) 0.1 Absolute Basophils (0.0 - 0.2 /CUMM) 0 Metamyelocytes (0.0 - 1.0 %) 1 Platelet Estimate (ADEQUATE) ADEQUATE Hypochromic-Microcytic 1+ Anisocytosis 1+ PUBS MCHC (33.0 - 37.0 G/DL) 34.2 Urines Urinalysis LIGHT H Urine Color (YEL,AMB,STR) KI Urine Clarity (CLEAR) HAZY H Urine pH (5.0 - 8.0) 6.0 Ur Specific [place] (1.001 - 1.035) 1.020 Urine Protein (NEG,<30 MG/DL) 30 H Urine Ketones (NEG) >=80 Urine Nitrite (NEG) NEG Urine Bilirubin (NEG) NEG Urine Urobilinogen (0.1 - 1.0 EU/dl) >=8.0 H Ur Leukocyte Esterase (NEG) NEG Ur Microscopic SEDIMENT EXAMINED Urine RBC (0 - 5 /HPF) 1-3 Urine WBC (0 - 2 /HPF) 1-3 H Ur Epithelial Cells (NONE,FEW) FEW Urine Bacteria (NEG/NONE) RARE H Hyaline Casts (0/LPF) RARE H Urine Mucus (FEW,NONE) FEW Urine Hemoglobin (NEG) NEG Urine Glucose (N MG/DL) 500 H 06/05 1627 Chemistry Sodium (137 - 145 mmol/L) 137 Potassium (3.5 - 5.1 mmol/L) 3.7 Chloride (98 - 107 mmol/L) 96 L Carbon Dioxide (22 - 30 mmol/L) 27 Anion Gap (5 - 16) 14 BUN (9 - 20 mg/dL) 17 Creatinine (0.7 - 1.2 mg/dL) 0.7 Estimated GFR (>60 ml/min) > 60 BUN/Creatinine Ratio (7 - 25 %) 24.3 Glucose (65 - 99 mg/dL) 234 H Hemoglobin A1c (4.2 - 5.8 %) 11.0 H Lactic Acid (0.7 - 2.1 mmol/L) Cancelled 1.6 Calcium (8.4 - 10.2 mg/dL) 8.5 Total Bilirubin (0.2 - 1.3 mg/dL) 1.1 AST (17 - 59 U/L) 38 ALT (21 - 72 U/L) 53 Alkaline Phosphatase (< 127 U/L) 146 H Total Protein (6.3 - 8.2 g/dL) 6.3 Albumin (3.5 - 5.0 g/dL) 2.9 L Globulin (1.9 - 4.2 gm/dL) 3.4 Albumin/Globulin Ratio (1.1 - 2.2 %) 0.9 L Hematology CBC w Diff MAN DIFF ORDERED WBC (4.8 - 10.8 /CUMM) 21.9 H RBC (4.70 - 6.10 /CUMM) 4.16 L Hgb (14.0 - 18.0 G/DL) 13.4 L Hct (42 - 52 %) 39.2 L MCV (80.0 - 94.0 FL) 94.1 H MCH (27.0 - 31.0 PG) 32.2 H RDW (11.5 - 14.5 %) 13.0 Plt Count (130 - 400 /CUMM) 256 MPV (7.4 - 10.4 FL) 9.1 Gran % (42.2 - 75.2 %) 86.4 H Lymphocytes % (20.5 - 51.1 %) 6.5 L Monocytes % (1.7 - 9.3 %) 6.6 Eosinophils % (0 - 5 %) 0.2 Basophils % (0.0 - 2.0 %) 0.3 Absolute Granulocytes (1.4 - 6.5 /CUMM) 18.9 H Segmented Neutrophils (42.2 - 75.2 %) 82 H Band Neutrophils (0.0 - 5.0 %) 3 Absolute Lymphocytes (1.2 - 3.4 /CUMM) 1.4 Lymphocytes (20.5 - 51.1 %) 4 L Monocytes (1.7 - 9.3 %) 11 H Absolute Monocytes (0.10 - 0.60 /CUMM) 1.4 H Absolute Eosinophils (0.0 - 0.7 /CUMM) 0.1 Absolute Basophils (0.0 - 0.2 /CUMM) 0.1 Platelet Estimate (ADEQUATE) ADEQUATE Normocytic RBCs VERIFIED Normochromic RBCs VERIFIED PUBS MCHC (33.0 - 37.0 G/DL) 34.2 ESR Westergren (0 - 10 MM) 107 H Last 24 Hours of Francis Results: Blood cultures 2 June 05 negative OR cultures June 06 labeled left foot bone and left foot soft tissue pending Diagnostic Data Recent Imaging Findings: X-ray of the left foot June 05 revealed prominent soft tissue swelling with gas surrounding the second digit and extending more proximally at the dorsum of the foot, with no erosive osseous changes. Doppler of the left leg June 05 negative. Chest x-ray June 06 negative Assessment/Plan Assessment/Plan Impression: This is a 56-year-old man with a history of diabetes, noncompliant with medication for the past year, status post an injury to his left foot 4 months prior to admission after stepping on glass, with a nonhealing wound on the plantar aspect of the foot since then, with intermittent drainage, admitted on June 05 with several days of swelling and erythema of the left foot, with blisters and discoloration of the second toe, found on admission to be afebrile, with a white blood cell count of 22,000 and with evidence on x-ray of gas in the soft tissues of the left foot. His clinical picture is consistent with gas gangrene, and he has now undergone amputation of the left first and second toes. He is scheduled for a return to the OR in 4 days, at which point he is felt by Podiatry to likely require a transmetatarsal amputation. He will need to be covered broadly with antibiotics, but his current regimen can be adjusted. Suggestion: 1. Follow-up OR cultures 2. Further debridement/amputation next week per Podiatry 3. Discontinue Clindamycin and Zosyn 4. Begin Unasyn 3 g IV every 6 hours pending above Nara Cotto MD will be covering over the weekend Consult Acknowledgment - Thank you for your consult request.
[2017-06-06 16:00] VITALS: BP 130/70
--- NOTE | 2017-06-06 16:00 | ULTRASOUND REPORT ---
EXAMINATION: US LOWER EXTREMITY ARTERIAL DOPPLER, EXAMINATION: US-BILAT LOW EXTRA ARTERIAL DOP CLINICAL INFORMATION: Decreased pulses, history of diabetes mellitus. COMPARISON: Lower extremity venous ultrasound 06/05/2017. TECHNIQUE: Real-time ultrasound and Doppler techniques (integrating B-mode 2-D vascular images, Doppler spectral analysis and color flow Doppler imaging) were utilized to interrogate the lower extremities. FINDINGS: Right lower extremity: There are normal velocities and triphasic waveforms throughout the right lower extremity. No evidence of hemodynamically significant stenosis. Left lower extremity: There are normal velocities and multiphasic waveforms throughout the left lower extremity. No evidence of hemodynamically significant stenosis. ADDITIONAL FINDINGS: None. IMPRESSION: Normal velocity and arterial waveforms in the lower extremity. No evidence of a hemodynamically significant stenosis. Greater sensitivity and specificity can be obtained with pre-and post exercise PVRs with GENA calculations. Also consider dedicated CTA for further anatomical detail.
[2017-06-06 22:35] VITALS: BP 150/87
[2017-06-07 06:00] VITALS: BP 144/72
--- NOTE | 2017-06-07 08:53 | PN- Housestaff ---
Abe RODRIGUEZ,Natalie 06/07/17 0853: Subjective Follow-up For: Gangrenous left foot Uncontrolled diabetes Subjective: Patient is seen and examined at bedside, MAXIMUM TEMPERATURE of 100.7 This morning, he was lying down in bed in no acute distress, only reports dull aching pain in his left foot, denies fever, chills, nausea, vomiting, diarrhea or constipation Review of Systems Constitutional: Reports: no symptoms. Objective Last 24 Hrs of Vital Signs/I&O Vital Signs Date Time Temp Pulse Resp B/P B/P Pulse O2 O2 Flow FiO2 Mean Ox Delivery Rate 06/07 0600 100.7 97 18 144/72 98 Room Air 06/06 2235 100.9 103 20 150/87 93 Room Air 06/06 1600 99.8 100 28 130/70 94 Room Air Intake & Output 06/07 1600 06/07 0800 06/07 0000 Intake Total 250 Output Total Balance 250 Intake, IV 250 Physical Exam General Appearance: Alert, Oriented X3, Cooperative, No Acute Distress Skin: No Rashes, No Breakdown HEENT: Atraumatic, PERRLA, EOMI, Mucous Membr. moist/pink Neck: Supple, No JVD Lungs: Clear to Auscultation Abdomen: Normal Bowel Sounds, Soft, No Tenderness Neurological: Normal Speech, Strength at 5/5 X4 Ext, Normal Tone Extremities: No Clubbing, No Cyanosis, 3 + pitting edema meet left fot, wrapped in Paramjit wrap, bluish discolouration of left toes Vascular: Normal Pulses Assessment/Plan Assessment: 56 yo M with h/o T2DM c/b neuropathy not on any meds, previous right leg cellulitis with abscess requiring I&D (2015), is sent in by PCP for evaluation of gangrene of left foot second toe. Injury to left 2nd toe on 4 months ago. Around friday started noticing discoloration. VS at admission Tmax 99, HR 100- 110, BP 140/70, sats 94% RA. Exam: AAO, obese male in no distress, is anxious of losing his toe, no pallor or lymphadenopathy, Chest clear, Heart S1S2 regular, Abd soft, distended, NT. Skin: warm and dry, Capillary refill < 2 secs.LE: Left foot - diffuse swelling with 2nd toe necrotic/gangrenous purple discoloration, cold, no sensation, ruptured bullae noted to the dorsal aspect of the foot with reddish blue discoloration and serosanguinous discharge, with open areas noted to the plantar aspect and an area of fluctuance on the plantar aspect of the base of the great toe. Erythema is extending into the left anterior leg with diffuse swelling of the leg. Peripheral pulse difficult to palpate on the left foot, well felt on the right foot.Labs: WBC 21.9, bands 3, ESR 107, macrocytic anemia, glucose 234, lactic acid 1.6. Left foot xray: prominent soft tissue swelling of forefoot with soft tissue gas surrounding second digit and extending proximally at dorsum of foot along the metatarsal level, no erosive osseous changes. Left LE doppler- no DVT. 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 Noncompliance with diabetic medications being the major contributing factor. He did have leukocytosis of 22 with evidence of gas in the soft tissues on Xray. * Underwent surgical debridement by * He needs metatarsal amputation in the next 4 days * Continue Unasyn 3 g IV every 6 * OR culture showed heavy growth of group B and staph aureus, we will follow up on sensitivity results Uncontrolled diabetes * Poorly controlled, finger stick where 223, 158, 213, 185 * Lost follow up due to financial issues. He is started on insulin sliding scale and levemir 15 units at bedtime. HbA1C 11%. * Continue Levemir 15 units at bedtime * Continue NovoLog sliding scale * on board, we'll follow up on her recommendation DVT prophylaxis SC lovenox Code status Full Code Problem List: 1. Cellulitis 2. Diabetes mellitus 3. Diabetic neuropathy Pain Ratin Pain Location: n/a Pain Goal: Remain pain free Pain Plan: per pathway Tomorrow's Labs & Rationales: cbc Sedrick Hubbard MD 06/07/17 1738: Attending MD Review Statement Attending Statement Attending MD Statement: examined this patient, discuss w/resident/PA/SASH FINISHER, agreed w/resident/PA/SASH FINISHER, reviewed EMR data (avail) Attending Assessment/Plan: Denies specific complaints. Has concerns about changing the dressing as it has been just over 24 hours. No visible soakage of the dressing. Had a T max of just over 100F. Minimal pain in the left foot, nothing more than usual. 1. Left foot gangrenous Necrotising fascitis - Initiated on vancomycin as per OR cultures. Appreciate ID recommendations. Continue with unasyn too. Plan to go to OR again on friday 2. Uncontrolled DM - Endocrinology following Lovenox for DVT prophylaxis
[2017-06-07 09:12] LABS: ABSOLUTE BASOPHIL COUNT 0 /CUMM (0.0-0.2); ABSOLUTE EOSINOPHIL COUNT 0.1 /CUMM (0.0-0.7); ABSOLUTE GRANULOCYTE CT 11.2 /CUMM (1.4-6.5); ABSOLUTE LYMPH COUNT 1.7 /CUMM (1.2-3.4); ABSOLUTE MONOCYTE COUNT 1.6 /CUMM (0.10-0.60); BASOPHIL % 0.3 % (0.0-2.0); EOSINOPHIL % 0.8 % (0-5); GRANULOCYTE % 76.2 % (42.2-75.2); HEMATOCRIT 32.4 % (42-52); MEAN CORPUSCULAR HGB 32.2 PG (27.0-31.0); MEAN CORPUSCULAR HGB CONC 34.3 G/DL (33.0-37.0); MEAN CORPUSCULAR VOLUME 94.1 FL (80.0-94.0); MEAN PLATELET VOLUME 8.7 FL (7.4-10.4); PLATELET COUNT 236 /CUMM (130-400); RBC DISTRIBUTION WIDTH 13.2 % (11.5-14.5); RED BLOOD CELL CT 3.44 /CUMM (4.70-6.10); WHITE BLOOD CELL COUNT 14.7 /CUMM (4.8-10.8)
--- NOTE | 2017-06-07 14:47 | PN- Infect Dx ---
Subjective Subjective: T max 100.7; he reports dull aching pain in his left foot, denies fever, chills, nausea, vomiting, diarrhea or constipation; decreased swelling L LE. Review of Systems Comments: 12 points revioewed as noted, otherwise negative. Objective Last 24 Hrs of Vital Signs/I&O Vital Signs Date Time Temp Pulse Resp B/P B/P Pulse O2 O2 Flow FiO2 Mean Ox Delivery Rate 06/07 0600 100.7 97 18 144/72 98 Room Air 06/06 2235 100.9 103 20 150/87 93 Room Air 06/06 1600 99.8 100 28 130/70 94 Room Air Intake & Output 06/07 1600 06/07 0800 06/07 0000 Intake Total 900 250 Output Total Balance 900 250 Intake, IV 100 250 Intake, Oral 800 Physical Exam Other Physical Findings: He is awake and alert in no acute distress. Skin reveals no rash. HEENT negative. Neck is supple with no adenopathy. Lungs are clear. Heart regular rhythm with no murmur. Abdomen is soft, nontender with positive bowel sounds. Back no CVA tenderness. Extremities left foot dressing intact with mild erythema and edema of the left leg; no cyanosis, clubbing or edema of the right leg. Neuro A&O x3 Results Last 24 Hours of Lab Results: Laboratory Tests 06/07 0720 Chemistry Sodium (137 - 145 mmol/L) 137 Potassium (3.5 - 5.1 mmol/L) 3.7 Chloride (98 - 107 mmol/L) 98 Carbon Dioxide (22 - 30 mmol/L) 28 Anion Gap (5 - 16) 10 BUN (9 - 20 mg/dL) 14 Creatinine (0.7 - 1.2 mg/dL) 0.7 Estimated GFR (>60 ml/min) > 60 BUN/Creatinine Ratio (7 - 25 %) 20.0 Hematology CBC w Diff NO MAN DIFF REQ WBC (4.8 - 10.8 /CUMM) 14.7 H RBC (4.70 - 6.10 /CUMM) 3.44 L Hgb (14.0 - 18.0 G/DL) 11.1 L Hct (42 - 52 %) 32.4 L MCV (80.0 - 94.0 FL) 94.1 H MCH (27.0 - 31.0 PG) 32.2 H RDW (11.5 - 14.5 %) 13.2 Plt Count (130 - 400 /CUMM) 236 MPV (7.4 - 10.4 FL) 8.7 Gran % (42.2 - 75.2 %) 76.2 H Lymphocytes % (20.5 - 51.1 %) 11.5 L Monocytes % (1.7 - 9.3 %) 11.2 H Eosinophils % (0 - 5 %) 0.8 Basophils % (0.0 - 2.0 %) 0.3 Absolute Granulocytes (1.4 - 6.5 /CUMM) 11.2 H Absolute Lymphocytes (1.2 - 3.4 /CUMM) 1.7 Absolute Monocytes (0.10 - 0.60 /CUMM) 1.6 H Absolute Eosinophils (0.0 - 0.7 /CUMM) 0.1 Absolute Basophils (0.0 - 0.2 /CUMM) 0 PUBS MCHC (33.0 - 37.0 G/DL) 34.3 Last 24 Hours of Francis Results: Patient : NAHOMI NOGUERA Acct: [id number] DR: Vern Espinoza MD Birthdate: [birth year] Age/Sex: 56/M Unit: [id number] Loc: [facility] 210- [id number] Status : ADM IN SPEC #: [id number] AMBER: 06/06/17 STATUS: RES RECD: 06/06/171503 [facility] DR: [place] SOURCE: EXTREMITIE ENTR: 06/06/17-[address]: Stephanie Nava DO SPDESC: FOOT LEFT Alexis RODRIGUEZ,Vern Mcbride MD, [facility] ORDERED: XTRMOR COMMENT: ADDITIONAL INFORMATION: LEFT FOOT KNUCKLE TISSE RECEIVED. Procedure Result > GRAM STAIN Final 06/07/17-1433 WHITE BLOOD CELLS FEW GRAM POSITIVE COCCI IN PAIRS > EXTREMITIES OR SPECIMEN Preliminary 06/07/17-1151 Heavy growth of: BETA STREP GROUP B Penicillin and Ampicillin are drugs of choice for beta-hemolytic streptococcal infections. Susceptibility testing of penicillins and other beta-lactams are not routinely performed because non-susceptible isolates have only rarely been reported. Note: If patient is allergic to Penicillin, the laboratory can perform Clindamycin testing upon request. Please call within 5 days of final report. [employer] ISOLATED NOTE THIS IS A PRELIMINARY REPORT: IF: patient has had significant exposure to a healthcare setting in the past three (3) months, THEN: suspect Methicillin Resistant Staph aureus and place patient on Contact precautions PENDING susceptibility results TO FOLLOW Called to/Readback by KENNA by NATALYA 06/07/17 9935 Recent Imaging Studies: X ray; TECHNIQUE: 3 views of the left toes were obtained. FINDINGS: There is prominent gas in the soft tissues which is centered at the second digit, although it extends in the dorsal soft tissues proximally along the metatarsal. There is prominent soft tissue swelling. There is no acute fracture or dislocation. No osseous erosion. IMPRESSION: Prominent soft tissue swelling of the forefoot with soft tissue gas surrounding the second digit and extending more proximally at the dorsum of the foot along the metatarsal level. No erosive osseous changes are noted. This critical result was discussed with Zack Alvares by telephone at 06/05/2017 5:22 PM and it was ascertained that the content and urgency of the report was understood at the time of direct communication. DICTATED BY: Kayla RODRIGUEZ,Daquan DATE/TIME DICTATED:06/05/171719 ONLINE CONTENT EDITOR:ANTONIO DATE/TIME TRANSCRIBED:06/05/171719 Assessment/Plan Impression: 56-year-old man with a history of DM2, status post an injury to his left foot 4 months prior to admission after stepping on glass, with a nonhealing wound on the plantar aspect of the foot since then, with intermittent drainage, admitted on June 05 with several days of swelling and erythema of the left foot. His clinical picture is consistent with gas gangrene, and he has now undergone amputation of the left first and second toes. He is scheduled for a return to the OR early next week, at which point he is felt by Podiatry to likely require a transmetatarsal amputation. Leukocytosis. WBC trending down on current abx regimen Suggestion: 1. OR cultures growing Strep gr. B and S. aureus; f/u path results. as patient with fever add iv vancomycin 1 gm q 12 h x 3 doses pending S. aureus sensitivity (and MRSA infection rules out). 2. Further debridement/amputation next week per Podiatry. 3. Cont Unasyn 3 g IV every 6 hours D #2.
[2017-06-07 15:06] VITALS: BP 138/70
--- NOTE | 2017-06-07 16:00 | PN- Diabetes ---
Assessment/Plan Assessment: patient has had diabetes type 2, however, he hasn't been on medications due to cost and insurance reason. He presented with lesion in his left foot x 2 days. He was admitted for left second toe gangrene with cellulitis. His HbA1c was 11%. He underwent toes amputation. The swelling has been better. He was put on Levemir 15 units daily, Novolog coverage before meals and Novolog coverage at bedtime. His FSGs were 185, 213 and 158. Plan: 1. increase Levemir to 18 units daily; 2. adjust Novolog coverage before meals; detail see the inpatient DM order; 3. continue the current Novolog coverage at bedtime; 4. monitor FSGs. will follow. Inpatient Diabetes Orders Before Each Meal: Bolus Insulin: Novolog < 80 mg/dl: no coverage 80-100 mg/dl: 6 units 101-120 mg/dl: 6 units 121-150 mg/dl: 6 units 151-200 mg/dl: 8 units 201-250 mg/dl: 10 units 251-300 mg/dl: 12 units 301-350 mg/dl: 14 units 351-400 mg/dl: 16 units > 400 mg/dl: 18 units Subjective Subjective: He feels better. Objective Last 24 Hrs of Vital Signs/I&O Vital Signs Date Time Temp Pulse Resp B/P B/P Pulse O2 O2 Flow FiO2 Mean Ox Delivery Rate 06/07 1506 99.6 96 18 138/70 96 Room Air Room Air 06/07 0600 100.7 97 18 144/72 98 Room Air 06/06 2235 100.9 103 20 150/87 93 Room Air 06/06 1600 99.8 100 28 130/70 94 Room Air Intake & Output 06/07 1600 06/07 0800 06/07 0000 Intake Total 900 250 Output Total Balance 900 250 Intake, IV 100 250 Intake, Oral 800 Findings Pertinent Lab/Francis Results: Laboratory Tests 06/07 0720 Chemistry Sodium (137 - 145 mmol/L) 137 Potassium (3.5 - 5.1 mmol/L) 3.7 Chloride (98 - 107 mmol/L) 98 Carbon Dioxide (22 - 30 mmol/L) 28 Anion Gap (5 - 16) 10 BUN (9 - 20 mg/dL) 14 Creatinine (0.7 - 1.2 mg/dL) 0.7 Estimated GFR (>60 ml/min) > 60 BUN/Creatinine Ratio (7 - 25 %) 20.0 Hematology CBC w Diff NO MAN DIFF REQ WBC (4.8 - 10.8 /CUMM) 14.7 H RBC (4.70 - 6.10 /CUMM) 3.44 L Hgb (14.0 - 18.0 G/DL) 11.1 L Hct (42 - 52 %) 32.4 L MCV (80.0 - 94.0 FL) 94.1 H MCH (27.0 - 31.0 PG) 32.2 H RDW (11.5 - 14.5 %) 13.2 Plt Count (130 - 400 /CUMM) 236 MPV (7.4 - 10.4 FL) 8.7 Gran % (42.2 - 75.2 %) 76.2 H Lymphocytes % (20.5 - 51.1 %) 11.5 L Monocytes % (1.7 - 9.3 %) 11.2 H Eosinophils % (0 - 5 %) 0.8 Basophils % (0.0 - 2.0 %) 0.3 Absolute Granulocytes (1.4 - 6.5 /CUMM) 11.2 H Absolute Lymphocytes (1.2 - 3.4 /CUMM) 1.7 Absolute Monocytes (0.10 - 0.60 /CUMM) 1.6 H Absolute Eosinophils (0.0 - 0.7 /CUMM) 0.1 Absolute Basophils (0.0 - 0.2 /CUMM) 0 PUBS MCHC (33.0 - 37.0 G/DL) 34.3
[2017-06-07 22:13] VITALS: BP 162/86
[2017-06-08 07:24] VITALS: BP 139/82
[2017-06-08 08:26] LABS: ABSOLUTE BASOPHIL COUNT 0 /CUMM (0.0-0.2); ABSOLUTE EOSINOPHIL COUNT 0.3 /CUMM (0.0-0.7); ABSOLUTE GRANULOCYTE CT 14.2 /CUMM (1.4-6.5); ABSOLUTE LYMPH COUNT 2.3 /CUMM (1.2-3.4); ABSOLUTE MONOCYTE COUNT 1.9 /CUMM (0.10-0.60); BASOPHIL % 0.3 % (0.0-2.0); EOSINOPHIL % 1.4 % (0-5); GRANULOCYTE % 75.8 % (42.2-75.2); HEMATOCRIT 36.5 % (42-52); MEAN CORPUSCULAR HGB 32.3 PG (27.0-31.0); MEAN CORPUSCULAR HGB CONC 34.3 G/DL (33.0-37.0); MEAN CORPUSCULAR VOLUME 94.1 FL (80.0-94.0); PLATELET COUNT 259 /CUMM (130-400); RBC DISTRIBUTION WIDTH 13.7 % (11.5-14.5); RED BLOOD CELL CT 3.88 /CUMM (4.70-6.10); WHITE BLOOD CELL COUNT 18.7 /CUMM (4.8-10.8)
--- NOTE | 2017-06-08 11:40 | PN- Housestaff ---
Ngozi RODRIGUEZ,Noemí 06/08/17 1140: Subjective Follow-up For: Gangrenous left foot Uncontrolled diabetes Subjective: Patient was seen and examined today. States he is having left foot pain rates it a 1 out of 10 in severity. States the swelling in his legs has improved. Patient states he has not had a bowel movement recently but feels he may have one today. Denies fever, chills, nausea/vomitting, diarrhea, chest pain, SOB, abdominal pain. States his appetite is good. Patient had a Tmax of 100.2 overnight. Repeat blood cultures were ordered. B, 225 today Patient is planned for revision with Dr. Zavaleta on 06/10. Review of Systems Constitutional: Reports: see HPI. Cardiovascular: Denies: no symptoms. Respiratory: Denies: no symptoms. Gastrointestinal: Denies: no symptoms. Genitourinary: Denies: no symptoms. Musculoskeletal: Reports: see HPI. Objective Last 24 Hrs of Vital Signs/I&O Vital Signs Date Time Temp Pulse Resp B/P B/P Pulse O2 O2 Flow FiO2 Mean Ox Delivery Rate 06/08 0724 97.9 90 20 139/82 96 Room Air 06/08 0050 98.8 06/08 0048 98.8 06/07 2318 100.2 06/07 2213 100.2 105 19 162/86 95 Room Air 06/07 1506 99.6 96 18 138/70 96 Room Air Room Air Physical Exam General Appearance: Alert, Oriented X3, Cooperative, No Acute Distress HEENT: Atraumatic, Mucous Membr. moist/pink Cardiovascular: Regular Rate, Normal S1, Normal S2 Lungs: Clear to Auscultation, Normal Air Movement Abdomen: Normal Bowel Sounds, Soft, No Tenderness Extremities: No Clubbing, No Cyanosis, Normal Pulses, left foot wrapped in surgical dressing, with minimal edema and erythema, no tenderness to palpation right extremity w/o cyanosis, clubbing or edema Current Medications: Current Medications Sig/Musa Start time Last Medication Dose Route Stop Time Status Admin Acetaminophen 1,000 MG ONCE ONE 06/070 DC 06/07 N/A 1 UNIT IV 06/07 2214 2318 Ampicillin Sodium/ 3,000 MG Q6 06/06 1800 AC 06/08 Sulbactam Sodium IV 1206 Sodium Chloride 100 ML Enoxaparin Sodium 40 MG DAILY 06/06 1000 AC 06/08 SC 0943 Insulin Aspart 0 TIDAC/HS 06/06 1700 AC 06/08 WI 1226 Insulin Detemir 18 UNITS AT BEDTIME 06/07 2200 AC 06/07 WI 2119 Insulin Detemir 15 UNITS AT BEDTIME 06/06 2200 DC 06/06 WI 2143 Oxycodone/ 1 TAB Q6P PRN 06/06 1945 AC Acetaminophen PO Vancomycin HCl 1,000 MG Q12 06/07 2200 06/08 Sodium Chloride 250 ML IV 06/08 2259 0943 Last 24 Hrs of Lab/Francis Results Last 24 Hrs of Labs/Mics: Laboratory Tests 06/08/17 0635: Anion Gap 10, Estimated GFR > 60, BUN/Creatinine Ratio 21.4, CBC w Diff MAN DIFF ORDERED, RBC 3.88 L, MCV 94.1 H, MCH 32.3 H, RDW 13.7, MPV 9.0, Gran % 75.8 H, Lymphocytes % 12.3 L, Monocytes % 10.2 H, Eosinophils % 1.4, Basophils % 0.3, Absolute Granulocytes 14.2 H, Segmented Neutrophils 67, Band Neutrophils 6 H, Absolute Lymphocytes 2.3, Lymphocytes 9 L, Monocytes 11 H, Absolute Monocytes 1.9 H, Eosinophils 5, Absolute Eosinophils 0.3, Absolute Basophils 0, Metamyelocytes 1, Myelocytes 1 H, Platelet Estimate VERIFIED BY SMEAR, Stomatocytes 1+, PUBS MCHC 34.3 Microbiology 06/07 2255 BLOOD: Blood Culture - RES 06/07 2240 BLOOD: Blood Culture - RES Assessment/Plan Assessment: 56 yo M with h/o T2DM c/b neuropathy not on any meds, previous right leg cellulitis with abscess requiring I&D (2014), is sent in by PCP for evaluation of gangrene of left foot second toe. Injury to left 2nd toe on 4 months ago. Around friday started noticing discoloration. VS at admission Tmax 99, HR 100- 110, BP 140/70, sats 94% RA. Exam: AAO, obese male in no distress, is anxious of losing his toe, no pallor or lymphadenopathy, Chest clear, Heart S1S2 regular, Abd soft, distended, NT. Skin: warm and dry, Capillary refill < 2 secs.LE: Left foot - diffuse swelling with 2nd toe necrotic/gangrenous purple discoloration, cold, no sensation, ruptured bullae noted to the dorsal aspect of the foot with reddish blue discoloration and serosanguinous discharge, with open areas noted to the plantar aspect and an area of fluctuance on the plantar aspect of the base of the great toe. Erythema is extending into the left anterior leg with diffuse swelling of the leg. Peripheral pulse difficult to palpate on the left foot, well felt on the right foot.Labs: WBC 21.9, bands 3, ESR 107, macrocytic anemia, glucose 234, lactic acid 1.6. Left foot xray: prominent soft tissue swelling of forefoot with soft tissue gas surrounding second digit and extending proximally at dorsum of foot along the metatarsal level, no erosive osseous changes. Left LE doppler- no DVT. 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 Noncompliance with diabetic medications being the major contributing factor. He did have leukocytosis of 22 with evidence of gas in the soft tissues on Xray. * Underwent surgical debridement by * Revision planned for 06/10 * Continue Unasyn 3 g IV every 6 * OR culture showed heavy growth of group B and staph aureus. Started on Vancomycin Uncontrolled diabetes * Poorly controlled, finger stick where 223, 158, 213, 185 * Lost follow up due to financial issues. He is started on insulin sliding scale and levemir 15 units at bedtime. HbA1C 11%. * Continue Levemir 15 units at bedtime * Continue NovoLog sliding scale * on board, we'll follow up on her recommendation Diarrhea * will send for C.dif PCR DVT prophylaxis SC lovenox Code status Full Code Problem List: 1. Gas gangrene 2. Cellulitis Pain Ratin Pain Location: foot Pain Goal: Pain 4 or less Pain Plan: per pain pathway Tomorrow's Labs & Rationales: vanc trough bep cbc Sedrick Soriano MD 06/08/17 2211: Attending MD Review Statement Attending Statement Attending MD Statement: examined this patient, discuss w/resident/PA/CLINICAL RESEARCH SPECIALIST, agreed w/resident/PA/CLINICAL RESEARCH SPECIALIST, reviewed EMR data (avail) Attending Assessment/Plan: Denies specific complaints. Patient resting comfortably in bed. Minimal pain in the left foot, nothing more than usual. 1. Left foot gangrenous Necrotising fascitis - Initiated on vancomycin as per OR cultures. Appreciate ID recommendations. Continue with unasyn too. Plan to go to OR again on friday 2. Uncontrolled DM - Endocrinology following 3. Patient had 2 episodes of loose stools, if patient continues to have loose stools - more than 3 per day. Send for C. diff PCR toxin assay. No abodminal pain
--- NOTE | 2017-06-08 12:05 | PN- Diabetes ---
Assessment/Plan Assessment: patient has had diabetes type 2, however, he hasn't been on medications due to cost and insurance reason. He presented with lesion in his left foot x 2 days. He was admitted for left second toe gangrene with cellulitis. His HbA1c was 11%. He underwent toes amputation. The swelling has been better. Levemir was increased to 18 units daily, Novolog coverage before meals was adjusted. He is on Novolog coverage at bedtime as well. His FSGs were 223, 178, 114 and 123. Plan: continue the current insulin regimen for now; monitor FSGs. will follow. Subjective Subjective: His glucose level has been better controlled. Objective Last 24 Hrs of Vital Signs/I&O Vital Signs Date Time Temp Pulse Resp B/P B/P Pulse O2 O2 Flow FiO2 Mean Ox Delivery Rate 06/08 0724 97.9 90 20 139/82 96 Room Air 06/08 0050 98.8 06/08 0048 98.8 06/07 2318 100.2 06/07 2213 100.2 105 19 162/86 95 Room Air 06/07 1506 99.6 96 18 138/70 96 Room Air Room Air Findings Pertinent Lab/Francis Results: Laboratory Tests 06/08 0635 Chemistry Sodium (137 - 145 mmol/L) 139 Potassium (3.5 - 5.1 mmol/L) 4.6 Chloride (98 - 107 mmol/L) 100 Carbon Dioxide (22 - 30 mmol/L) 29 Anion Gap (5 - 16) 10 BUN (9 - 20 mg/dL) 15 Creatinine (0.7 - 1.2 mg/dL) 0.7 Estimated GFR (>60 ml/min) > 60 BUN/Creatinine Ratio (7 - 25 %) 21.4 Hematology CBC w Diff MAN DIFF ORDERED WBC (4.8 - 10.8 /CUMM) 18.7 H RBC (4.70 - 6.10 /CUMM) 3.88 L Hgb (14.0 - 18.0 G/DL) 12.5 L Hct (42 - 52 %) 36.5 L MCV (80.0 - 94.0 FL) 94.1 H MCH (27.0 - 31.0 PG) 32.3 H RDW (11.5 - 14.5 %) 13.7 Plt Count (130 - 400 /CUMM) 259 MPV (7.4 - 10.4 FL) 9.0 Gran % (42.2 - 75.2 %) 75.8 H Lymphocytes % (20.5 - 51.1 %) 12.3 L Monocytes % (1.7 - 9.3 %) 10.2 H Eosinophils % (0 - 5 %) 1.4 Basophils % (0.0 - 2.0 %) 0.3 Absolute Granulocytes (1.4 - 6.5 /CUMM) 14.2 H Segmented Neutrophils (42.2 - 75.2 %) 67 Band Neutrophils (0.0 - 5.0 %) 6 H Absolute Lymphocytes (1.2 - 3.4 /CUMM) 2.3 Lymphocytes (20.5 - 51.1 %) 9 L Monocytes (1.7 - 9.3 %) 11 H Absolute Monocytes (0.10 - 0.60 /CUMM) 1.9 H Eosinophils (0 - 5.0 %) 5 Absolute Eosinophils (0.0 - 0.7 /CUMM) 0.3 Absolute Basophils (0.0 - 0.2 /CUMM) 0 Metamyelocytes (0.0 - 1.0 %) 1 Myelocytes (0 - 0 %) 1 H Platelet Estimate (ADEQUATE) VERIFIED BY SMEAR Stomatocytes 1+ PUBS MCHC (33.0 - 37.0 G/DL) 34.3
[2017-06-08 14:44] VITALS: BP 150/70
--- NOTE | 2017-06-08 15:57 | PN- Infect Dx ---
Subjective Subjective: No fever. Decreased swelling L LE. 2 loose stools after having prune juice earlier today. No abd pain. Review of Systems Comments: 12 points reviewed as noted, otherwise neg. Objective Last 24 Hrs of Vital Signs/I&O Vital Signs Date Time Temp Pulse Resp B/P B/P Pulse O2 O2 Flow FiO2 Mean Ox Delivery Rate 06/08 1444 98.4 86 20 150/70 96 Room Air 06/08 0724 97.9 90 20 139/82 96 Room Air 06/08 0050 98.8 06/08 0048 98.8 06/07 2318 100.2 06/07 2213 100.2 105 19 162/86 95 Room Air Intake & Output 06/08 1600 06/08 0800 06/08 0000 Intake Total 1350 Output Total Balance 1350 Intake, IV 350 Intake, Oral 1000 Number 1 Bowel Movements Physical Exam Other Physical Findings: He is awake and alert in no acute distress. Skin reveals no rash. HEENT negative. Neck is supple with no adenopathy. Lungs are clear. Heart regular rhythm with no murmur. Abdomen is soft, nontender with positive bowel sounds. Back no CVA tenderness. Extremities left foot dressing intact; decreased erythema and edema of the left leg; no cyanosis, clubbing or edema of the right leg. Neuro A&O x3 Results Last 24 Hours of Lab Results: Laboratory Tests 06/08 0635 Chemistry Sodium (137 - 145 mmol/L) 139 Potassium (3.5 - 5.1 mmol/L) 4.6 Chloride (98 - 107 mmol/L) 100 Carbon Dioxide (22 - 30 mmol/L) 29 Anion Gap (5 - 16) 10 BUN (9 - 20 mg/dL) 15 Creatinine (0.7 - 1.2 mg/dL) 0.7 Estimated GFR (>60 ml/min) > 60 BUN/Creatinine Ratio (7 - 25 %) 21.4 Hematology CBC w Diff MAN DIFF ORDERED WBC (4.8 - 10.8 /CUMM) 18.7 H RBC (4.70 - 6.10 /CUMM) 3.88 L Hgb (14.0 - 18.0 G/DL) 12.5 L Hct (42 - 52 %) 36.5 L MCV (80.0 - 94.0 FL) 94.1 H MCH (27.0 - 31.0 PG) 32.3 H RDW (11.5 - 14.5 %) 13.7 Plt Count (130 - 400 /CUMM) 259 MPV (7.4 - 10.4 FL) 9.0 Gran % (42.2 - 75.2 %) 75.8 H Lymphocytes % (20.5 - 51.1 %) 12.3 L Monocytes % (1.7 - 9.3 %) 10.2 H Eosinophils % (0 - 5 %) 1.4 Basophils % (0.0 - 2.0 %) 0.3 Absolute Granulocytes (1.4 - 6.5 /CUMM) 14.2 H Segmented Neutrophils (42.2 - 75.2 %) 67 Band Neutrophils (0.0 - 5.0 %) 6 H Absolute Lymphocytes (1.2 - 3.4 /CUMM) 2.3 Lymphocytes (20.5 - 51.1 %) 9 L Monocytes (1.7 - 9.3 %) 11 H Absolute Monocytes (0.10 - 0.60 /CUMM) 1.9 H Eosinophils (0 - 5.0 %) 5 Absolute Eosinophils (0.0 - 0.7 /CUMM) 0.3 Absolute Basophils (0.0 - 0.2 /CUMM) 0 Metamyelocytes (0.0 - 1.0 %) 1 Myelocytes (0 - 0 %) 1 H Platelet Estimate (ADEQUATE) VERIFIED BY SMEAR Stomatocytes 1+ PUBS MCHC (33.0 - 37.0 G/DL) 34.3 Last 24 Hours of Francis Results: Patient : NAHOMI NOGUERA Acct: [id number] DR: Vern Espinoza MD Birthdate: [birth year] Age/Sex: 56/M Unit: [id number] Loc: 2NB [phone] Status : ADM IN SPEC #: [id number] AMBER: 06/06/17 STATUS: RES RECD: 06/06/[address]: Reid Henriquez DPM SOURCE: EXTREMITIE ENTR: 06/06/[address] [facility] DR: Stephanie Nava DO SPDESC: FOOT LEFT Alexis RODRIGUEZ,Vern Mcbride MD, [facility] ORDERED: XTRMOR COMMENT: RECEIVED. FOOT BONE IN LAB Procedure Result > GRAM STAIN Final 06/07/17 WHITE BLOOD CELLS NONE GRAM POSITIVE COCCI FEW GRAM POSITIVE RODS RARE OTHER AFTER OVERNIGHT INCUBATION IN THIO > EXTREMITIES OR SPECIMEN Preliminary 06/08/17-1117 FROM OVERNIGHT GROWTH IN THIO BROTH: 1.DIPHTHEROIDS 2.STAPH AUREUS ISOLATED NOTE THIS IS A PRELIMINARY REPORT: IF: patient has had significant exposure to a healthcare setting in the past three (3) months, THEN: suspect Methicillin Resistant Staph aureus and place patient on Contact precautions PENDING susceptibility results TO FOLLOW 3.BETA STREP GROUP B Penicillin and Ampicillin are drugs of choice for beta-hemolytic streptococcal infections. Susceptibility testing of penicillins and other beta-lactams are not routinely performed because non-susceptible isolates have only rarely been reported. Note: If patient is allergic to Penicillin, the laboratory can perform Clindamycin testing upon request. Please call within 5 days of final report. Called to/Readback by LEEROY by LAB.[facility] 06/08/17 8661 Recent Imaging Studies: Reviewed. Assessment/Plan Impression: 56-year-old man with a history of DM2, status post an injury to his left foot 4 months prior to admission after stepping on glass, with a nonhealing wound on the plantar aspect of the foot since then, with intermittent drainage, admitted on June 05 with several days of swelling and erythema of the left foot. His clinical picture is consistent with gas gangrene, s/p amputation of the left first and second toes. He is scheduled for a return to the OR early next week, at which point he is felt by Podiatry to likely require a transmetatarsal amputation. Leukocytosis. WBC trending up Loose stools; if worsening diarrhea plan to r/o C. difficile infection Suggestion: 1. OR cultures growing Strep gr. B and S. aureus; pending S. aureus sensitivity continue iv vancomycin 1 gm q 12 h; vanco trough 06/09 in am. 2. Further debridement/amputation next week per Podiatry. 3. Cont Unasyn 3 g IV every 6 hours D #3. 4. If persistent diarrhea obtain C. difficile stool assay (if available 2 step testing C. difficile antigen and toxin w/ reflex C. diff toxin PCR if discordant results).
[2017-06-08 22:08] VITALS: BP 138/72
[2017-06-09 05:53] VITALS: BP 138/80
--- NOTE | 2017-06-09 07:19 | PN- Housestaff ---
Leslie RODRIGUEZ,Dinorah 06/09/17 0719: Subjective Follow-up For: Gas gangrene Subjective: Remains stable overnight. Worried about amputation. He denies any pain/fever/ chills. Temp of 100.2 overnight. sugars controlled with current regimen. Review of Systems Constitutional: Reports: see HPI. Objective Last 24 Hrs of Vital Signs/I&O Vital Signs Date Time Temp Pulse Resp B/P B/P Pulse O2 O2 Flow FiO2 Mean Ox Delivery Rate 06/09 0553 98.6 90 18 138/80 96 Room Air 06/08 2208 100.2 92 19 138/72 95 Room Air 06/08 1444 98.4 86 20 150/70 96 Room Air 06/08 0724 97.9 90 20 139/82 96 Room Air Intake & Output 06/09 0800 06/09 0000 06/08 1600 Intake Total 320 1500 1350 Output Total Balance 320 1500 1350 Intake, IV 200 350 Intake, Oral 120 1500 1000 Number 1 Bowel Movements Physical Exam General Appearance: Alert, Oriented X3, Cooperative Skin: dressing evident on the left foot HEENT: Atraumatic, PERRLA, EOMI Neck: Supple Cardiovascular: Normal S1, Normal S2 Lungs: Clear to Auscultation, Normal Air Movement Abdomen: Normal Bowel Sounds, Soft, No Tenderness Neurological: Normal Speech Extremities: No Clubbing, cyanotic 2nd & 3rd metatarsal with decreased sensation , no capillary refill in 3rd & 4th toes. good refill on the 5th toe Vascular: Normal Pulses, Pulses Symmetrical Current Medications: Current Medications Sig/Musa Start time Last Medication Dose Route Stop Time Status Admin Ampicillin Sodium/ 3,000 MG Q6 06/06 1800 AC 06/09 Sulbactam Sodium IV 0552 Sodium Chloride 100 ML Enoxaparin Sodium 40 MG DAILY 06/06 1000 AC 06/08 DC 0943 Insulin Aspart 0 TIDAC/HS 06/06 1700 AC 06/08 DC 1733 Insulin Detemir 18 UNITS AT BEDTIME 06/07 2200 AC 06/08 DC 211 Oxycodone/ 1 TAB Q6P PRN 06/06 1945 AC Acetaminophen PO Vancomycin HCl 1,000 MG Q12 06/07 2200 DC 06/08 Sodium Chloride 250 ML IV 06/08 Last 24 Hrs of Lab/Francis Results Last 24 Hrs of Labs/Mics: Laboratory Tests 06/09/17 0928: Vancomycin Trough < 5.0 L 06/09/17 0723: Anion Gap 9, Estimated GFR > 60, BUN/Creatinine Ratio 15.7, CBC w Diff NO MAN DIFF REQ, RBC 3.71 L, MCV 93.4, MCH 32.0 H, RDW 13.2, MPV 8.5, Gran % 79.7 H, Lymphocytes % 12.5 L, Monocytes % 6.2, Eosinophils % 1.2, Basophils % 0.4, Absolute Granulocytes 14.3 H, Absolute Lymphocytes 2.2, Absolute Monocytes 1.1 H, Absolute Eosinophils 0.2, Absolute Basophils 0.1, PUBS MCHC 34.2 Assessment/Plan Assessment: 56 yo M with h/o T2DM c/b neuropathy not on any meds, previous right leg cellulitis with abscess requiring I&D (2014), is sent in by PCP for evaluation of gangrene of left foot second toe. Injury to left 2nd toe on 4 months ago. Around friday started noticing discoloration. VS at admission Tmax 99, HR 100- 110, BP 140/70, sats 94% RA. Exam: AAO, obese male in no distress, is anxious of losing his toe, no pallor or lymphadenopathy, Chest clear, Heart S1S2 regular, Abd soft, distended, NT. Skin: warm and dry, Capillary refill < 2 secs.LE: Left foot - diffuse swelling with 2nd toe necrotic/gangrenous purple discoloration, cold, no sensation, ruptured bullae noted to the dorsal aspect of the foot with reddish blue discoloration and serosanguinous discharge, with open areas noted to the plantar aspect and an area of fluctuance on the plantar aspect of the base of the great toe. Erythema is extending into the left anterior leg with diffuse swelling of the leg. Peripheral pulse difficult to palpate on the left foot, well felt on the right foot.Labs: WBC 21.9, bands 3, ESR 107, macrocytic anemia, glucose 234, lactic acid 1.6. Left foot xray: prominent soft tissue swelling of forefoot with soft tissue gas surrounding second digit and extending proximally at dorsum of foot along the metatarsal level, no erosive osseous changes. Left LE doppler- no DVT. 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 Noncompliance with diabetic medications being the major contributing factor. He did have leukocytosis of 22 with evidence of gas in the soft tissues on Xray. * Underwent surgical debridement by -- repeat debridement tomorrow. * NPO overnight for repeat debridement * He needs metatarsal amputation in the next 4 days * Continue Unasyn 3 g IV every 6 - pending sensitivities * OR culture showed heavy growth of group B and staph aureus, we will follow up on sensitivity results * Undergoing PICC line tomorrow, consent form filled. Uncontrolled diabetes * Fingersticks were 189, 189, 189 * Lost follow up due to financial issues. He is started on insulin sliding scale and levemir 15 units at bedtime. HbA1C 11%. * Continue Levemir 15 units at bedtime * Continue NovoLog sliding scale -- transition to NPO sliding scale at midnight. * on board, we'll follow up on her recommendation DVT prophylaxis SC lovenox Code status Full Code Problem List: 1. Diabetes mellitus 2. Gas gangrene Pain Ratin Pain Location: lower extremities Pain Goal: Pain 4 or less Pain Plan: tylenol prn Tomorrow's Labs & Rationales: cbc for white count while on antibiotics bep for electrolytes Vern Espinoza MD 06/09/17 1535: Attending MD Review Statement Attending Statement Attending MD Statement: examined this patient, discuss w/resident/PA/INTERIOR PANELER, agreed w/resident/PA/INTERIOR PANELER, discussed with family, reviewed EMR data (avail), discussed with nursing, discussed with case mgmt, amended to note Attending Assessment/Plan: The patient was seen and discussed with house staff. Agree with plan of care as outlined. To return to OR tomorrow for ?further amputation (patient states may need 3-5th toes amputated). Continue Vanco/Unasyn as per ID pending final OR cultures from last week. Sugars in good control. The patient is changing insurances at 1st of year and had questions regarding transition and home care. Case Management to discuss.
[2017-06-09 08:14] LABS: ABSOLUTE BASOPHIL COUNT 0.1 /CUMM (0.0-0.2); ABSOLUTE EOSINOPHIL COUNT 0.2 /CUMM (0.0-0.7); ABSOLUTE GRANULOCYTE CT 14.3 /CUMM (1.4-6.5); ABSOLUTE LYMPH COUNT 2.2 /CUMM (1.2-3.4); ABSOLUTE MONOCYTE COUNT 1.1 /CUMM (0.10-0.60); BASOPHIL % 0.4 % (0.0-2.0); EOSINOPHIL % 1.2 % (0-5); GRANULOCYTE % 79.7 % (42.2-75.2); HEMATOCRIT 34.7 % (42-52); MEAN CORPUSCULAR HGB CONC 34.2 G/DL (33.0-37.0); MEAN CORPUSCULAR VOLUME 93.4 FL (80.0-94.0); MEAN PLATELET VOLUME 8.5 FL (7.4-10.4); PLATELET COUNT 286 /CUMM (130-400); RBC DISTRIBUTION WIDTH 13.2 % (11.5-14.5); RED BLOOD CELL CT 3.71 /CUMM (4.70-6.10); WHITE BLOOD CELL COUNT 17.9 /CUMM (4.8-10.8)
--- NOTE | 2017-06-09 12:15 | PN- Diabetes ---
Assessment/Plan Assessment: patient has had diabetes type 2, however, he hasn't been on medications due to cost and insurance reason. He presented with lesion in his left foot x 2 days. He was admitted for left second toe gangrene with cellulitis. His HbA1c was 11%. He underwent toes amputation. The swelling has been better. Levemir was increased to 18 units daily, Novolog coverage before meals was adjusted. He is on Novolog coverage at bedtime as well. His FSGs were 170, 189 and 149. Plan: continue the current insulin regimen for now. monitor FSGs. will follow. Subjective Subjective: His glucose level has been better controlled. Objective Last 24 Hrs of Vital Signs/I&O Vital Signs Date Time Temp Pulse Resp B/P B/P Pulse O2 O2 Flow FiO2 Mean Ox Delivery Rate 06/09 0553 98.6 90 18 138/80 96 Room Air 06/08 2208 100.2 92 19 138/72 95 Room Air 06/08 1444 98.4 86 20 150/70 96 Room Air Intake & Output 06/09 1600 06/09 0800 06/09 0000 Intake Total 320 1500 Output Total Balance 320 1500 Intake, IV 200 Intake, Oral 120 1500 Findings Pertinent Lab/Francis Results: Laboratory Tests 06/09 06/09 0928 0723 Chemistry Sodium (137 - 145 mmol/L) 135 L Potassium (3.5 - 5.1 mmol/L) 4.4 Chloride (98 - 107 mmol/L) 99 Carbon Dioxide (22 - 30 mmol/L) 26 Anion Gap (5 - 16) 9 BUN (9 - 20 mg/dL) 11 Creatinine (0.7 - 1.2 mg/dL) 0.7 Estimated GFR (>60 ml/min) > 60 BUN/Creatinine Ratio (7 - 25 %) 15.7 Hematology CBC w Diff NO MAN DIFF REQ WBC (4.8 - 10.8 /CUMM) 17.9 H RBC (4.70 - 6.10 /CUMM) 3.71 L Hgb (14.0 - 18.0 G/DL) 11.9 L Hct (42 - 52 %) 34.7 L MCV (80.0 - 94.0 FL) 93.4 MCH (27.0 - 31.0 PG) 32.0 H RDW (11.5 - 14.5 %) 13.2 Plt Count (130 - 400 /CUMM) 286 MPV (7.4 - 10.4 FL) 8.5 Gran % (42.2 - 75.2 %) 79.7 H Lymphocytes % (20.5 - 51.1 %) 12.5 L Monocytes % (1.7 - 9.3 %) 6.2 Eosinophils % (0 - 5 %) 1.2 Basophils % (0.0 - 2.0 %) 0.4 Absolute Granulocytes (1.4 - 6.5 /CUMM) 14.3 H Absolute Lymphocytes (1.2 - 3.4 /CUMM) 2.2 Absolute Monocytes (0.10 - 0.60 /CUMM) 1.1 H Absolute Eosinophils (0.0 - 0.7 /CUMM) 0.2 Absolute Basophils (0.0 - 0.2 /CUMM) 0.1 PUBS MCHC (33.0 - 37.0 G/DL) 34.2 Toxicology Vancomycin Trough (10.0 - 20.0 ug/mL) < 5.0 L
--- NOTE | 2017-06-09 14:01 | Discharge Summary ---
Visit Information Visit Dates Admission Date: 06/05/17 Discharge Date: 06/13/2017 Hospital Course Course Attending Physician: Vern Espinoza MD Primary Care Physician: Stephanie Nava DO Consulting Request: 1 Consulting Specialty: Endocrinology Consulting Request: 2 Consulting Specialty: Infectious Disease Consulting Request: 3 Consulting Specialty: Podiatry Hospital Course: 56 yo M with h/o T2DM c/b neuropathy not on any meds, previous right leg cellulitis with abscess requiring I&D (2014), is sent in by PCP for evaluation of gangrene of left foot second toe. Injury to left 2nd toe on 4 months ago. Around friday started noticing discoloration. VS at admission Tmax 99, HR 100- 110, BP 140/70, sats 94% RA. Exam: AAO, obese male in no distress, is anxious of losing his toe, no pallor or lymphadenopathy, Chest clear, Heart S1S2 regular, Abd soft, distended, NT. Skin: warm and dry, Capillary refill < 2 secs.LE: Left foot - diffuse swelling with 2nd toe necrotic/gangrenous purple discoloration, cold, no sensation, ruptured bullae noted to the dorsal aspect of the foot with reddish blue discoloration and serosanguinous discharge, with open areas noted to the plantar aspect and an area of fluctuance on the plantar aspect of the base of the great toe. Erythema is extending into the left anterior leg with diffuse swelling of the leg. Peripheral pulse difficult to palpate on the left foot, well felt on the right foot.Labs: WBC 21.9, bands 3, ESR 107, macrocytic anemia, glucose 234, lactic acid 1.6. Left foot xray: prominent soft tissue swelling of forefoot with soft tissue gas surrounding second digit and extending proximally at dorsum of foot along the metatarsal level, no erosive osseous changes. Left LE doppler- no DVT. 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 Noncompliance with diabetic medications being the major contributing factor. He did have leukocytosis of 22 with evidence of gas in the soft tissues on Xray. Underwent debridement three times by and palced n wound vac(details below). Started on Unasyn 3 g IV every 6 and briefly on vanco while he grew Staph aureus pending sensitivities. OR culture showed heavy growth of group B and staph aureus, sensitive to Unasyn.vascular surgery also on board. Underwent PICC line placement on (06/10/17) at bedside. Stable to go to rehab. Per ID consultation patient should be on Unasyn for 4 weeks, last dose should be 07/15/2017. Patient needs weekly ESR tests(for 4 weeks) to follow the process after treatment Uncontrolled diabetes Stopped taking diabetic medications due to financial issues. Used to follow previously. Intially fingersticks glucose readings were on the higher side. He is started on insulin sliding scale and levemir 15 units at bedtime. HbA1C 11%. Per endocrine consultation Patient was put on long-acting Levemir 18 units at bedside and his sliding scale insulin. Patient should be on the same regimen during the rehabilitation. Upon discharge to home from rehab patient should beon metformin 1000 mg twice a day ( with breakfast and with dinner), Glimepiride 2 mg twice a day ( before breakfast and before dinner). Complications: None Allergies: Coded Allergies: NO KNOWN ALLERGIES (04/20/15) Significant Procedures: PATIENT: NAHOMI NOGUERA PRESENT AGE: 56 PATIENT ACCOUNT NO: [id number] DATE OF : 62 ADMIT/SERVICE DATE: 06/05/17 ATTENDING PHYSICIAN: Vern Espinoza MD PATIENT CARE UNIT CONFIDENTIAL COPY Operative/Inv Procedure Report Surgery Date: 06/06/17 Name of Procedure: 1 open incision and drainage deep to the deep fascia with exposure of the extensor tendon and tendon sheath multiple sites left foot 2 open, partial first and second ray resections left foot 3 intraoperative administration of ankle block anesthesia 4 excisional debridement Pre-Operative Diagnosis: 1 gas gangrene left foot 2 diabetic peripheral neuropathy Post-Operative Diagnosis: The same Estimated Blood Loss: less than 50ml Surgeon/Emt I/85: REID LORENZ DPM Anesthesia: moderate sedation, block Operative/Procedure Note Note: After obtaining informed consent the patient was brought to the operating room and placed on the operating table in the supine position. The patient isn't securely fastened to the operating table utilizing safety belt. After administration of IV sedation, 10 mL of 0.5% Marcaine plain was infiltrated about the patient's left ankle. The left foot and ankle within scrubbed prepped and draped in usual aseptic manner. Attention directed to the left foot. Where necrosis was identified involving the first and second digits extending proximal to the metatarsophalangeal joints. There was necrosis identified extending over the dorsal lateral foot as well. A fishmouth-type incision encompassing the distal first and second rays were then marked out with a skin marker. The tissues were then incised with a 15 blade and the digits were disarticulated at the metatarsophalangeal joints. The dissection then continued proximally. Where the distal first and second metatarsals were exposed. Sagittal bone saw was utilized to resect the distal osseous segments. Specimen was sent for both microbiologic and pathologic inspection. The dissection was then carried down deep to the deep fascia with exposure of the extensor tendon and tendon sheath multiple sites, both proximally and distally. All necrotic nonviable infected tissue sharply evacuated from the wound bed. The tissue planes were noted to separate with blunt dissection and foul-smelling watery drainage was identified. Again, all necrotic and nonviable tissues were evacuated from the wound bed. Nipple was then irrigated with 3 L normal sterile saline fissure 50,000 units of bacitracin. Following this, the foot was redraped and surgeon's top of gestation clean gloves. Any bleeding vessels identified were cauterized or ligated as encountered. Nipple was then packed with a wet-to-dry a destiney dressing followed by 4 x 4's Kerlix and Paramjit wrap. The patient was noted tolerate both procedure and anesthesia well and the patient was transported from the operative room to recovery with vital signs stable. DICTATED BY: Reid Lorenz DPM DATE/TIME DICTATED:06/06/171507 BATTERYMAN:SUZANNE DATE/TIME TRANSCRIBED:06/06/171507 REPORT NUMBER:[id number] CONFIDENTIAL, DO NOT COPY WITHOUT APPROPRIATE AUTHORIZATION. <Electronically signed by Reid Lorenz DPM> 06/06/17 1514 PATIENT: NAHOMI NOGUERA PRESENT AGE: 56 PATIENT ACCOUNT NO: [id number] DATE OF : 62 ADMIT/SERVICE DATE: 06/05/17 ATTENDING PHYSICIAN: Vern Espinoza MD PATIENT CARE UNIT CONFIDENTIAL COPY Operative/Inv Procedure Report Surgery Date: 06/10/17 Name of Procedure: 1 Open transmetatarsal amputation left foot 2 Intra-operative application of negative pressure wound therapy 3 Intra-operative administration of ankle block anesthesia 4 Excisional debridement Pre-Operative Diagnosis: 1 Gangrene left foot 2 Osteomyelitis left foot 3 Diabetic peripheral neuropathy Post-Operative Diagnosis: The same Estimated Blood Loss: less than 50ml Surgeon/Emt I/85: REID LORENZ DPM Anesthesia: moderate sedation, block Operative/Procedure Note Note: After obtaining informed consent patient was brought to the operating room and placed on the operating table in the supine position. The patient isn't securely fastened to the operating table utilizing safety belt. After administration of IV sedation, 10 mL of 0.5% Marcaine plain was infiltrated about the patient's left ankle. The left foot and ankle then scrubbed prepped and draped in usual aseptic manner. A fishmouth-type incision and compassing the lateral 3 rays and the distal stumps of the first and second metatarsals was marked out with a skin marker. A 15 blade was utilized to sharply revise the elevated a dorsal flap, which point a sagittal bone saw was utilized performed through and through osteotomies to the distal third fourth and fifth rays and revision of the stump of the first and second rays. Specimen sent for pathologic inspection. Nipple was then irrigated with 3 L of normal sterile saline infused with 50,000 units of bacitracin. Following this the foot was redraped and the surgeon's top pleasure changed clean gloves. Any bleeding vessels identified were cauterized or ligated as encountered. Negative pressure wound therapy was then placed over the wound bed followed by Kerlix and an Paramjit wrap. The patient was noted tolerate both procedure and anesthesia well and the patient was transported from the operating room to recovery with vital signs stable. DICTATED BY: Reid Lorenz DPM DATE/TIME DICTATED:06/10/172120 BATTERYMAN:SUZANNE DATE/TIME TRANSCRIBED:06/10/172120 REPORT NUMBER:[id number] CONFIDENTIAL, DO NOT COPY WITHOUT APPROPRIATE AUTHORIZATION. <Electronically signed by Reid Lorenz DPM> 06/11/17 0835 PATIENT: NAHOMI NOGUERA PRESENT AGE: 56 PATIENT ACCOUNT NO: [id number] DATE OF : 62 ADMIT/SERVICE DATE: 06/05/17 ATTENDING PHYSICIAN: Vern Espinoza MD PATIENT CARE UNIT CONFIDENTIAL COPY Operative/Inv Procedure Report Surgery Date: 06/12/17 Name of Procedure: 1 Revisional incision and drainage deep to the deep fascial with exposure of the tendon and tendon sheath left foot 2 Delayed primary closure of open surgical wound left 3 Revision of TMA to Lisfanc's joint 4 Intra-operative application of negative pressure wound therapy 5 Intra-operative administration of ankle block anesthesia 6 Excisional debridement Pre-Operative Diagnosis: 1 Open, necrotic wound left foot 2 Osteomyelitis left foot Post-Operative Diagnosis: The same Estimated Blood Loss: less than 50ml Surgeon/Emt I/85: REID LORENZ DPM Anesthesia: moderate sedation, block Operative/Procedure Note Note: After obtaining informed consent the patient was brought to the operating room and placed on the operating table in the supine position. The patient isn't securely fastened to the operating table utilizing safety belt. After administration of IV sedation, 10 mL of 0.5% Marcaine plain was infiltrated about the patient's left ankle. The left foot and ankle then scrubbed prepped and draped in usual aseptic manner. Attention was directed to the left foot, where a large full-thickness chronic was identified. A 15 blade was utilized sharply revised skin margins. The dissection was then carried down deep to the D fashion with exposure of the flexor and extensor tendon and tendon sheath multiple sites, both proximally and distally. All necrotic nonviable infected tissue sharply evacuated from the wound bed. Dissection and continued proximally to the level of the Lisfranc's joint where the proximal metatarsals were disarticulated and passed from the operative field. The medial cuneiform was also disarticulated and passed from the operative field. Specimen was sent for pathologic inspection. The open wound was then irrigated with 3 L of normal sterile saline infused with 50,000 units of bacitracin. Following this, the foot was redraped and the surgeon's top was changed clean gloves. Any bleeding vessels identified were cauterized or ligated as encountered. The plantar flap was then mobilized and advanced superiorly to cover the exposed joint. The deep side of the flap was reapproximated with 2-0 Vicryl. The septae stitches were reapproximated with 3-0 Vicryl. The remaining portion of open wound medially was then dressed with negative pressure wound therapy. The foot was and cover with Kerlix and an Paramjit wrap. The patient was noted tolerate both procedure and anesthesia well and the patient was transported from the operating room to recovery with vital signs stable and vascular status intact to the plantar flap. DICTATED BY: Reid Lorenz DPM DATE/TIME DICTATED:06/12/172348 BATTERYMAN:SUZANNE DATE/TIME TRANSCRIBED:06/12/172348 REPORT NUMBER:[id number] CONFIDENTIAL, DO NOT COPY WITHOUT APPROPRIATE AUTHORIZATION. <Electronically signed by Reid Lorenz DPM> 06/13/17 0907 Pertinent Lab Results: PATIENT: NAHOMI NOGUERA PRESENT AGE: 56 PATIENT ACCOUNT NO: [id number] : 62 LOCATION: [facility] ORDERING PHYSICIAN: Zack BRENNER SERVICE DATE: 06/05/17 EXAM TYPE: RAD - XRY-TOES, LEFT EXAMINATION: XR TOES, LEFT CLINICAL INFORMATION: Left second necrotic toe COMPARISON: None TECHNIQUE: 3 views of the left toes were obtained. FINDINGS: There is prominent gas in the soft tissues which is centered at the second digit, although it extends in the dorsal soft tissues proximally along the metatarsal. There is prominent soft tissue swelling. There is no acute fracture or dislocation. No osseous erosion. IMPRESSION: Prominent soft tissue swelling of the forefoot with soft tissue gas surrounding the second digit and extending more proximally at the dorsum of the foot along the metatarsal level. No erosive osseous changes are noted. This critical result was discussed with Zack Alvares by telephone at 06/05/2017 5:22 PM and it was ascertained that the content and urgency of the report was understood at the time of direct communication. DICTATED BY: Daquan Garza MD DATE/TIME DICTATED:06/05/171719 BATTERYMAN:ANTONIO DATE/TIME TRANSCRIBED:06/05/171719 CONFIDENTIAL, DO NOT COPY WITHOUT APPROPRIATE AUTHORIZATION. <Electronically signed in Other Vendor System> SIGNED BY: Daquan Garza MD 06/05 ======== PATIENT: NAHOMI NOGUERA PRESENT AGE: 56 PATIENT ACCOUNT NO: [id number] : 62 LOCATION: [facility] ORDERING PHYSICIAN: Zack BRENNER SERVICE DATE: 06/05/17 EXAM TYPE: US - US-UNILATERAL VENOUS DOPPLER EXAMINATION: US TRIPLEX LOWER EXTREMITY, LEFT CLINICAL INFORMATION: Left lower extremity swelling and pain. COMPARISON: None TECHNIQUE: Color-flow triplex imaging with spectral analysis and compression Doppler were performed on the left lower extremity. FINDINGS: Respiratory variation, normal compression and augmented flow are noted throughout the left lower extremity. The visualized common femoral vein, superficial femoral vein, profunda femoral vein, popliteal vein and midcalf peroneal and posterior tibial venous segments show no evidence of deep venous thrombosis. There is no Hoyt's cyst. Enlarged left inguinal lymph nodes measuring up to 3.4 cm in size. IMPRESSION: - Normal triplex scan without evidence of deep venous thrombosis involving the left lower extremity. - Enlarged left inguinal lymph nodes measuring up to 3.4 cm in size. DICTATED BY: Dominick Lehman MD DATE/TIME DICTATED:06/05/172022 BATTERYMAN:ANTONIO DATE/TIME TRANSCRIBED:06/05/172022 CONFIDENTIAL, DO NOT COPY WITHOUT APPROPRIATE AUTHORIZATION. <Electronically signed in Other Vendor System> SIGNED BY: Dominick Lehman MD 06/05/172030 ======== PATIENT: NAHOMI NOGUERA PRESENT AGE: 56 PATIENT ACCOUNT NO: [id number] : 62 LOCATION: [facility] ORDERING PHYSICIAN: Dinorah Nelson MD SERVICE DATE: 06/06/17- EXAM TYPE: RAD - XRY-PORTABLE CHEST XRAY EXAMINATION: XR PORTABLE CHEST CLINICAL INFORMATION: Preoperative COMPARISON: No priors TECHNIQUE: Portable frontal view of the chest was obtained. FINDINGS: Heart size is within normal limits. Slight prominence to the superior mediastinum is likely related to AP technique. Thoracic aorta is normal in size and contour. Pulmonary vascularity is within normal limits. The lungs are grossly clear. No focal consolidation or atelectasis is seen. No acute bony abnormality is identified. IMPRESSION: Chest x-ray shows normally expanded and grossly clear lungs with no acute findings. DICTATED BY: Leticia Engle MD DATE/TIME DICTATED:06/06/171102 BATTERYMAN:ANTONIO DATE/TIME TRANSCRIBED:06/06/171102 CONFIDENTIAL, DO NOT COPY WITHOUT APPROPRIATE AUTHORIZATION. <Electronically signed in Other Vendor System> SIGNED BY: Leticia Engle MD 06/06 ========= PATIENT: NAHOMI NOGUERA PRESENT AGE: 56 PATIENT ACCOUNT NO: [id number] : 62 LOCATION: [facility] ORDERING PHYSICIAN: Dinorah Nelson MD SERVICE DATE: 06/06/17- EXAM TYPE: RAD - XRY-PORTABLE CHEST XRAY EXAMINATION: XR PORTABLE CHEST CLINICAL INFORMATION: Preoperative COMPARISON: No priors TECHNIQUE: Portable frontal view of the chest was obtained. FINDINGS: Heart size is within normal limits. Slight prominence to the superior mediastinum is likely related to AP technique. Thoracic aorta is normal in size and contour. Pulmonary vascularity is within normal limits. The lungs are grossly clear. No focal consolidation or atelectasis is seen. No acute bony abnormality is identified. IMPRESSION: Chest x-ray shows normally expanded and grossly clear lungs with no acute findings. DICTATED BY: Leticia Engle MD DATE/TIME DICTATED:06/06/171102 BATTERYMAN:ANTONIO DATE/TIME TRANSCRIBED:06/06/171102 CONFIDENTIAL, DO NOT COPY WITHOUT APPROPRIATE AUTHORIZATION. <Electronically signed in Other Vendor System> SIGNED BY: Leticia Engle MD 06/06 ========= PATIENT: NAHOMI NOGUERA PRESENT AGE: 56 PATIENT ACCOUNT NO: [id number] : 62 LOCATION: [facility] ORDERING PHYSICIAN: Vern Espinoza MD SERVICE DATE: 06/10/17 EXAM TYPE: RAD - XRY-PORTABLE CHEST XRAY EXAMINATION: XR PORTABLE CHEST CLINICAL INFORMATION: PICC placement COMPARISON: June 06, 2017 TECHNIQUE: Portable frontal view of the chest was obtained. FINDINGS: There is no evidence of acute parenchymal disease, pneumothorax, or pleural effusion. Heart normal size. No evidence of pulmonary edema. Right upper extremity PICC line is seen with tip overlying the distal superior vena cava. IMPRESSION: No acute disease. PICC line in place with tip in the inferior portion of the superior vena cava just superior to the cavoatrial junction. DICTATED BY: Conrad Castillo MD DATE/TIME DICTATED:06/10/171111 BATTERYMAN:ANTONIO DATE/TIME TRANSCRIBED:06/10/171111 CONFIDENTIAL, DO NOT COPY WITHOUT APPROPRIATE AUTHORIZATION. <Electronically signed in Other Vendor System> SIGNED BY: Conrad Castillo MD 06/10/171116 ========= PATIENT: NAHOMI NOGUERA PRESENT AGE: 56 PATIENT ACCOUNT NO: [id number] : 62 LOCATION: [facility] ORDERING PHYSICIAN: Dinorah Nelson MD SERVICE DATE: 06/11/17 EXAM TYPE: RAD - XRY-FOOT COMPLETE, LEFT EXAMINATION: XR FOOT, LEFT CLINICAL INFORMATION: Diabetic with debrided wound on the left foot. Presumptive diagnosis of gas gangrene status post debridement. COMPARISON: Left foot films from 06/05/2017. TECHNIQUE: AP, lateral, and oblique views of the left foot. FINDINGS: The patient is now status post proximal metatarsal amputation of the first through fifth digits with soft tissue drain seen in place. Small locules of air are seen at the amputation margin, consistent with postoperative change. Small plantar calcaneal spur is seen. Arteriovascular calcifications are seen in the soft tissues. IMPRESSION: Small locules of air are seen at the amputation margin status post transmetatarsal amputations of the first through fifth digits, presumably representing postoperative change. Close clinical correlation is requested. DICTATED BY: Amaya Kowalski MD DATE/TIME DICTATED:06/11/171251 BATTERYMAN:ANTONIO DATE/TIME TRANSCRIBED:06/11/171251 CONFIDENTIAL, DO NOT COPY WITHOUT APPROPRIATE AUTHORIZATION. <Electronically signed in Other Vendor System> SIGNED BY: Amaya Kowalski MD [id number] Disposition Summary Disposition Principal Diagnosis: Gas gangrene of the left foot Additional Diagnosis: Uncontrolled diabetes Discharge Disposition: SNF Discharge Instructions General Discharge Information Code Status: Full Code Patient's Diet: Diabetic diet Patient's Activity: as tolerated Follow-Up Instructions/Appts: -Please follow-up with your primary care provider within 7 days after discharge. -Please follow-up with your inspector government property 7 days after discharge -Please follow-up with your podiatry surgeon 7 days after discharge regarding the wound VAC. -Please follow-up with your ID specialist 7 days after discharge. -Please follow-up with your vascular surgeon 7 days after discharge. -We have made changes to your home medications, please read the instructions carefully. -Please come back to the hospital if your symptoms got worse. -Please check weekly ESR for 4 weeks. Medications at Discharge Discharge Medications: Start taking the following new medications: Ampicillin Sodium/Sulbactam Na (Unasyn 3 Gm Vial) 3 GRAM VIAL 3 Gram INTRAVEN EVERY SIX HOURS Qty = 120 No Refills Instructions: STOP on 07/15/2017 Comments: Last Taken: 06/13/17 Time: 11:30 AM Oxycodone HCl/Acetaminophen (Percocet 5-325 MG Tablet) 5 MG-325 MG TABLET 1 Tablet ORAL EVERY SIX HOURS NEEDED as needed for moderate to severe pain Qty = 15 No Refills Comments: NOT GIVEN IN HOSPITAL Insulin Detemir (Levemir) 100 UNIT/ML VIAL 18 Units Inject into fatty tissue AT BEDTIME Qty = 1 No Refills Comments: Last Taken: 06/12/17 Time: 9:00 PM Insulin Aspart (Novolog) 100 UNIT/ML VIAL 0 Units Inject into fatty tissue BEFORE MEALS AND AT BEDTIME Qty = 1 No Refills Instructions: BEFORE MEALS Blood Insulin Sugar Units <80 0 81-150 6 101-200 8 201-250 10 251-300 12 301-350 14 351-400 16 >400 8 Call Doctor AT BEDTIME Blood Insulin Sugar Units <80 0 81-100 0 101-200 0 201-250 0 251-300 2 301-350 3 351-400 4 >400 5 Call Doctor Comments: Last Taken: 06/13/17 Time: 12:00 PM Copies To: Martinez CURRY,Meghana Sarmiento MD,Noé Hudson; Sheldon RODRIGUEZ,Eliseo Attending MD Review Statement Documenting Attending: Vern Espinoza MD Other Findings: Agree with plan of care as outlined.
--- NOTE | 2017-06-09 15:09 | PN- Infect Dx ---
Subjective Subjective: MAXIMUM TEMPERATURE 100.2. He notes some discomfort in the left foot. He also notes loose stools. Objective Last 24 Hrs of Vital Signs/I&O Vital Signs Date Time Temp Pulse Resp B/P B/P Pulse O2 O2 Flow FiO2 Mean Ox Delivery Rate 06/09 0553 98.6 90 18 138/80 96 Room Air 06/08 2208 100.2 92 19 138/72 95 Room Air Intake & Output 06/09 1600 06/09 0800 06/09 0000 Intake Total 4732 300 6593 Output Total Balance 2639 463 2074 Intake, IV 450 200 Intake, Oral 640 232 8180 Number 0 Bowel Movements Physical Exam Other Physical Findings: He appears comfortable in no acute distress Lungs are clear Heart regular rhythm with no murmur Extremities left foot dressing intact Results Last 24 Hours of Lab Results: Laboratory Tests 06/09 06/09 0928 0723 Chemistry Sodium (137 - 145 mmol/L) 135 L Potassium (3.5 - 5.1 mmol/L) 4.4 Chloride (98 - 107 mmol/L) 99 Carbon Dioxide (22 - 30 mmol/L) 26 Anion Gap (5 - 16) 9 BUN (9 - 20 mg/dL) 11 Creatinine (0.7 - 1.2 mg/dL) 0.7 Estimated GFR (>60 ml/min) > 60 BUN/Creatinine Ratio (7 - 25 %) 15.7 Hematology CBC w Diff NO MAN DIFF REQ WBC (4.8 - 10.8 /CUMM) 17.9 H RBC (4.70 - 6.10 /CUMM) 3.71 L Hgb (14.0 - 18.0 G/DL) 11.9 L Hct (42 - 52 %) 34.7 L MCV (80.0 - 94.0 FL) 93.4 MCH (27.0 - 31.0 PG) 32.0 H RDW (11.5 - 14.5 %) 13.2 Plt Count (130 - 400 /CUMM) 286 MPV (7.4 - 10.4 FL) 8.5 Gran % (42.2 - 75.2 %) 79.7 H Lymphocytes % (20.5 - 51.1 %) 12.5 L Monocytes % (1.7 - 9.3 %) 6.2 Eosinophils % (0 - 5 %) 1.2 Basophils % (0.0 - 2.0 %) 0.4 Absolute Granulocytes (1.4 - 6.5 /CUMM) 14.3 H Absolute Lymphocytes (1.2 - 3.4 /CUMM) 2.2 Absolute Monocytes (0.10 - 0.60 /CUMM) 1.1 H Absolute Eosinophils (0.0 - 0.7 /CUMM) 0.2 Absolute Basophils (0.0 - 0.2 /CUMM) 0.1 PUBS MCHC (33.0 - 37.0 G/DL) 34.2 Toxicology Vancomycin Trough (10.0 - 20.0 ug/mL) < 5.0 L Last 24 Hours of Francis Results: OR cultures June 06 labeled left foot tissue and left foot bone both positive for Group B strep and MSSA, with diphtheroids also isolated from the bone culture Blood cultures June 05 negative Blood cultures June 07 negative Recent Imaging Studies: Arterial Dopplers of both lower extremities June 06 revealed no evidence of any hemodynamically significant stenosis Assessment/Plan Impression: Stable now 3 days status post amputation of the left first and second toes for gas gangrene, with his OR cultures positive for MSSA and Group B strep. The significance of the diphtheroids is unclear and suspect it represents contamination. Vancomycin was apparently added to the Unasyn 2 days ago based on the preliminary OR cultures growing Staph aureus, but this can be discontinued based on his final cultures. He continues to have low-grade fevers with a persistent leukocytosis, likely secondary to ongoing infection in the left foot, and he is scheduled for completion of a left TMA in the a.m. He will require a 4 week course of IV antibiotics postoperatively. Suggestion: 1. Proceed with placement of a PICC 2. Await return to the OR in the a.m. 3. Discontinue Vancomycin 4. Continue Unasyn
[2017-06-09 15:45] VITALS: BP 136/78
[2017-06-09 22:50] VITALS: BP 128/78
--- NOTE | 2017-06-10 07:33 | PN- Housestaff ---
Subjective Follow-up For: Gas gangrene Uncontrolled diabetes Subjective: Seen and examined He remains in distress about going to STR. He denies any pain, still lying in bed with dressing on left foot intact. Review of Systems Constitutional: Reports: see HPI. Comments: ROS negative except the above Objective Last 24 Hrs of Vital Signs/I&O Vital Signs Date Time Temp Pulse Resp B/P B/P Pulse O2 O2 Flow FiO2 Mean Ox Delivery Rate 06/09 2250 99.9 93 18 128/78 97 Room Air 06/09 1545 98.1 95 19 136/78 96 Room Air Intake & Output 06/10 0800 06/10 0000 06/09 1600 Intake Total 1200 1050 Output Total Balance 1200 1050 Intake, IV 450 Intake, Oral 1200 600 Number 0 Bowel Movements Physical Exam General Appearance: Alert, Oriented X3, Cooperative Skin: No Rashes, No Breakdown HEENT: Atraumatic, PERRLA, EOMI Neck: Supple Cardiovascular: Regular Rate, Normal S1, Normal S2 Lungs: Clear to Auscultation, Normal Air Movement Abdomen: Normal Bowel Sounds, Soft, No Tenderness Neurological: Normal Gait, Normal Speech, Strength at 5/5 X4 Ext Extremities: No Clubbing, No Cyanosis, left foot dressing intact., underwent repeat debridement today with wound vac in place Current Medications: Current Medications Sig/Musa Start time Last Medication Dose Route Stop Time Status Admin Ampicillin Sodium/ 3,000 MG Q6 06/06 1800 AC 06/10 Sulbactam Sodium IV 0545 Sodium Chloride 100 ML Benzocaine/Menthol 1 OSCAR Q2P PRN 06/09 2030 AC PO Enoxaparin Sodium 40 MG DAILY 06/06 1000 AC 06/09 MD 0816 Insulin Aspart 0 TIDAC/HS 06/06 1700 DC 06/09 SC 06/09 2355 1700 Insulin Detemir 18 UNITS AT BEDTIME 06/07 2200 AC 06/09 MD 2155 Insulin Human Regular 0 Q6 06/09 2359 AC 06/10 SC 0545 Oxycodone/ 1 TAB Q6P PRN 06/06 1945 AC Acetaminophen PO Vancomycin HCl 1,000 MG Q12 06/09 1000 DC 06/09 Sodium Chloride 250 ML IV 1136 Last 24 Hrs of Lab/Francis Results Last 24 Hrs of Labs/Mics: Laboratory Tests 06/10/17 1640: ESR Westergren Pending 06/10/17 0715: Anion Gap 11, Estimated GFR > 60, BUN/Creatinine Ratio 16.3, CBC w Diff MAN DIFF ORDERED, RBC 3.77 L, MCV 94.3 H, MCH 31.9 H, RDW 13.1, MPV 8.7, Gran % 79.2 H, Lymphocytes % 13.3 L, Monocytes % 5.9, Eosinophils % 1.4, Basophils % 0.2, Absolute Granulocytes 13.8 H, Segmented Neutrophils 65, Band Neutrophils 5, Absolute Lymphocytes 2.3, Lymphocytes 22, Monocytes 8, Absolute Monocytes 1.0 H , Absolute Eosinophils 0.2, Absolute Basophils 0, Nucleated RBCs 1 H, Platelet Estimate VERIFIED BY SMEAR, Normocytic RBCs VERIFIED, Normochromic RBCs VERIFIED , PUBS MCHC 33.8 Assessment/Plan Assessment: 56 yo M with h/o T2DM c/b neuropathy not on any meds, previous right leg cellulitis with abscess requiring I&D (2014), is sent in by PCP for evaluation of gangrene of left foot second toe. Injury to left 2nd toe on 4 months ago. Around friday started noticing discoloration. VS at admission Tmax 99, HR 100- 110, BP 140/70, sats 94% RA. Exam: AAO, obese male in no distress, is anxious of losing his toe, no pallor or lymphadenopathy, Chest clear, Heart S1S2 regular, Abd soft, distended, NT. Skin: warm and dry, Capillary refill < 2 secs.LE: Left foot - diffuse swelling with 2nd toe necrotic/gangrenous purple discoloration, cold, no sensation, ruptured bullae noted to the dorsal aspect of the foot with reddish blue discoloration and serosanguinous discharge, with open areas noted to the plantar aspect and an area of fluctuance on the plantar aspect of the base of the great toe. Erythema is extending into the left anterior leg with diffuse swelling of the leg. Peripheral pulse difficult to palpate on the left foot, well felt on the right foot.Labs: WBC 21.9, bands 3, ESR 107, macrocytic anemia, glucose 234, lactic acid 1.6. Left foot xray: prominent soft tissue swelling of forefoot with soft tissue gas surrounding second digit and extending proximally at dorsum of foot along the metatarsal level, no erosive osseous changes. Left LE doppler- no DVT. 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 Noncompliance with diabetic medications being the major contributing factor. He did have leukocytosis of 22 with evidence of gas in the soft tissues on Xray. * Underwent repeat debridement today * Continue Unasyn 3 g IV every 6 - pending sensitivities * OR culture showed heavy growth of group B and staph aureus, we will follow up on sensitivity results * Undergoing PICC line placement at bedside. Uncontrolled diabetes Stopped taking diabetic medications due to financial issues. Used to follow previously. * Fingersticks were 189, 189, 189 * He is started on insulin sliding scale and levemir 15 units at bedtime. HbA1C 11%. * Continue Levemir 15 units at bedtime * Continue NovoLog sliding scale * on board, we'll follow up on her recommendation DVT prophylaxis SC lovenox Code status Full Code Problem List: 1. Diabetes mellitus 2. Gas gangrene 3. Diabetic neuropathy Pain Ratin Pain Location: left foot Pain Goal: Pain 4 or less Pain Plan: tylenol Tomorrow's Labs & Rationales: cbc to monitor [facility]
[2017-06-10 07:36] VITALS: BP 115/74
[2017-06-10 08:29] LABS: ABSOLUTE BASOPHIL COUNT 0 /CUMM (0.0-0.2); ABSOLUTE EOSINOPHIL COUNT 0.2 /CUMM (0.0-0.7); ABSOLUTE GRANULOCYTE CT 13.8 /CUMM (1.4-6.5); ABSOLUTE LYMPH COUNT 2.3 /CUMM (1.2-3.4); BASOPHIL % 0.2 % (0.0-2.0); EOSINOPHIL % 1.4 % (0-5); GRANULOCYTE % 79.2 % (42.2-75.2); HEMATOCRIT 35.5 % (42-52); MEAN CORPUSCULAR HGB 31.9 PG (27.0-31.0); MEAN CORPUSCULAR HGB CONC 33.8 G/DL (33.0-37.0); MEAN CORPUSCULAR VOLUME 94.3 FL (80.0-94.0); MEAN PLATELET VOLUME 8.7 FL (7.4-10.4); PLATELET COUNT 293 /CUMM (130-400); RBC DISTRIBUTION WIDTH 13.1 % (11.5-14.5); RED BLOOD CELL CT 3.77 /CUMM (4.70-6.10); WHITE BLOOD CELL COUNT 17.4 /CUMM (4.8-10.8)
--- NOTE | 2017-06-10 11:12 | PN- Diabetes ---
Assessment/Plan Assessment: patient has had diabetes type 2, however, he hasn't been on medications due to cost and insurance reason. He presented with lesion in his left foot x 2 days. He was admitted for left second toe gangrene with cellulitis. His HbA1c was 11%. He underwent toes amputation. The swelling has been better. Levemir was increased to 18 units daily, Novolog coverage before meals was adjusted. He is on Novolog coverage at bedtime as well. His FSGs were 174, 137, 129 and 124. Plan: continue the current insulin regimen; monitor FSGs. will follow. Subjective Subjective: He feels okay. Objective Last 24 Hrs of Vital Signs/I&O Vital Signs Date Time Temp Pulse Resp B/P B/P Pulse O2 O2 Flow FiO2 Mean Ox Delivery Rate 06/10 0736 99.0 89 18 115/74 96 Room Air 06/09 2250 99.9 93 18 128/78 97 Room Air 06/09 1545 98.1 95 19 136/78 96 Room Air Intake & Output 06/10 1600 06/10 0800 06/10 0000 Intake Total 260 1200 Output Total 500 Balance -240 1200 Intake, IV 260 Intake, Oral 1200 Output, Urine 500 Findings Pertinent Lab/Francis Results: Laboratory Tests 06/10 0715 Chemistry Sodium (137 - 145 mmol/L) 138 Potassium (3.5 - 5.1 mmol/L) 4.5 Chloride (98 - 107 mmol/L) 100 Carbon Dioxide (22 - 30 mmol/L) 27 Anion Gap (5 - 16) 11 BUN (9 - 20 mg/dL) 13 Creatinine (0.7 - 1.2 mg/dL) 0.8 Estimated GFR (>60 ml/min) > 60 BUN/Creatinine Ratio (7 - 25 %) 16.3 Hematology CBC w Diff MAN DIFF ORDERED WBC (4.8 - 10.8 /CUMM) 17.4 H RBC (4.70 - 6.10 /CUMM) 3.77 L Hgb (14.0 - 18.0 G/DL) 12.0 L Hct (42 - 52 %) 35.5 L MCV (80.0 - 94.0 FL) 94.3 H MCH (27.0 - 31.0 PG) 31.9 H RDW (11.5 - 14.5 %) 13.1 Plt Count (130 - 400 /CUMM) 293 MPV (7.4 - 10.4 FL) 8.7 Gran % (42.2 - 75.2 %) 79.2 H Lymphocytes % (20.5 - 51.1 %) 13.3 L Monocytes % (1.7 - 9.3 %) 5.9 Eosinophils % (0 - 5 %) 1.4 Basophils % (0.0 - 2.0 %) 0.2 Absolute Granulocytes (1.4 - 6.5 /CUMM) 13.8 H Segmented Neutrophils (42.2 - 75.2 %) 65 Band Neutrophils (0.0 - 5.0 %) 5 Absolute Lymphocytes (1.2 - 3.4 /CUMM) 2.3 Lymphocytes (20.5 - 51.1 %) 22 Monocytes (1.7 - 9.3 %) 8 Absolute Monocytes (0.10 - 0.60 /CUMM) 1.0 H Absolute Eosinophils (0.0 - 0.7 /CUMM) 0.2 Absolute Basophils (0.0 - 0.2 /CUMM) 0 Nucleated RBCs (0.0 - 0.0 /100WBC) 1 H Platelet Estimate (ADEQUATE) VERIFIED BY SMEAR Normocytic RBCs VERIFIED Normochromic RBCs VERIFIED PUBS MCHC (33.0 - 37.0 G/DL) 33.8
--- NOTE | 2017-06-10 11:17 | RADIOLOGY REPORT ---
EXAMINATION: XR PORTABLE CHEST CLINICAL INFORMATION: PICC placement COMPARISON: June 06, 2017 TECHNIQUE: Portable frontal view of the chest was obtained. FINDINGS: There is no evidence of acute parenchymal disease, pneumothorax, or pleural effusion. Heart normal size. No evidence of pulmonary edema. Right upper extremity PICC line is seen with tip overlying the distal superior vena cava. IMPRESSION: No acute disease. PICC line in place with tip in the inferior portion of the superior vena cava just superior to the cavoatrial junction.
--- NOTE | 2017-06-10 12:42 | PN- Infect Dx ---
Subjective Subjective: Afebrile. He notes minimal if any pain in the left foot. Objective Last 24 Hrs of Vital Signs/I&O Vital Signs Date Time Temp Pulse Resp B/P B/P Pulse O2 O2 Flow FiO2 Mean Ox Delivery Rate 06/10 0736 99.0 89 18 115/74 96 Room Air 06/09 2250 99.9 93 18 128/78 97 Room Air 06/09 1545 98.1 95 19 136/78 96 Room Air Intake & Output 06/10 1600 06/10 0800 06/10 0000 Intake Total 260 1200 Output Total 500 Balance -240 1200 Intake, IV 260 Intake, Oral 1200 Output, Urine 500 Physical Exam Other Physical Findings: He appears comfortable in no acute distress Extremities left foot dressing intact; PICC in place in the right upper extremity Results Last 24 Hours of Lab Results: Laboratory Tests 06/10 07 Chemistry Sodium (137 - 145 mmol/L) 138 Potassium (3.5 - 5.1 mmol/L) 4.5 Chloride (98 - 107 mmol/L) 100 Carbon Dioxide (22 - 30 mmol/L) 27 Anion Gap (5 - 16) 11 BUN (9 - 20 mg/dL) 13 Creatinine (0.7 - 1.2 mg/dL) 0.8 Estimated GFR (>60 ml/min) > 60 BUN/Creatinine Ratio (7 - 25 %) 16.3 Hematology CBC w Diff MAN DIFF ORDERED WBC (4.8 - 10.8 /CUMM) 17.4 H RBC (4.70 - 6.10 /CUMM) 3.77 L Hgb (14.0 - 18.0 G/DL) 12.0 L Hct (42 - 52 %) 35.5 L MCV (80.0 - 94.0 FL) 94.3 H MCH (27.0 - 31.0 PG) 31.9 H RDW (11.5 - 14.5 %) 13.1 Plt Count (130 - 400 /CUMM) 293 MPV (7.4 - 10.4 FL) 8.7 Gran % (42.2 - 75.2 %) 79.2 H Lymphocytes % (20.5 - 51.1 %) 13.3 L Monocytes % (1.7 - 9.3 %) 5.9 Eosinophils % (0 - 5 %) 1.4 Basophils % (0.0 - 2.0 %) 0.2 Absolute Granulocytes (1.4 - 6.5 /CUMM) 13.8 H Segmented Neutrophils (42.2 - 75.2 %) 65 Band Neutrophils (0.0 - 5.0 %) 5 Absolute Lymphocytes (1.2 - 3.4 /CUMM) 2.3 Lymphocytes (20.5 - 51.1 %) 22 Monocytes (1.7 - 9.3 %) 8 Absolute Monocytes (0.10 - 0.60 /CUMM) 1.0 H Absolute Eosinophils (0.0 - 0.7 /CUMM) 0.2 Absolute Basophils (0.0 - 0.2 /CUMM) 0 Nucleated RBCs (0.0 - 0.0 /100WBC) 1 H Platelet Estimate (ADEQUATE) VERIFIED BY SMEAR Normocytic RBCs VERIFIED Normochromic RBCs VERIFIED PUBS MCHC (33.0 - 37.0 G/DL) 33.8 Last 24 Hours of Francis Results: Blood cultures 2 June 07 negative Recent Imaging Studies: Chest x-ray June 10 negative Assessment/Plan Impression: Stable now 4 days status post amputation of the left first and second toes for gas gangrene, with his OR cultures positive for MSSA and Group B strep. He remains afebrile on Unasyn, but his white blood cell count is still elevated, likely secondary to ongoing infection in the left foot, and he is scheduled for completion of a left TMA later today. He will require a 4 week course of IV antibiotics postoperatively and a PICC has been placed. Suggestion: 1. Await return to the OR later today 2. Would obtain a postoperative baseline ESR and x-ray of the left foot in the a.m. June 11 3. Continue Unasyn to plan on a 4 week course of antibiotics from today
[2017-06-10 14:52] VITALS: BP 122/84
--- NOTE | 2017-06-10 21:25 | Operative Report ---
Operative/Inv Procedure Report Surgery Date: 06/10/17 Name of Procedure: 1 Open transmetatarsal amputation left foot 2 Intra-operative application of negative pressure wound therapy 3 Intra-operative administration of ankle block anesthesia 4 Excisional debridement Pre-Operative Diagnosis: 1 Gangrene left foot 2 Osteomyelitis left foot 3 Diabetic peripheral neuropathy Post-Operative Diagnosis: The same Estimated Blood Loss: less than 50ml Surgeon/Gas Engine Operator Generators: SAJAN LORENZ DPM Anesthesia: moderate sedation, block Operative/Procedure Note Note: After obtaining informed consent patient was brought to the operating room and placed on the operating table in the supine position. The patient isn't securely fastened to the operating table utilizing safety belt. After administration of IV sedation, 10 mL of 0.5% Marcaine plain was infiltrated about the patient's left ankle. The left foot and ankle then scrubbed prepped and draped in usual aseptic manner. A fishmouth-type incision and compassing the lateral 3 rays and the distal stumps of the first and second metatarsals was marked out with a skin marker. A 15 blade was utilized to sharply revise the elevated a dorsal flap, which point a sagittal bone saw was utilized performed through and through osteotomies to the distal third fourth and fifth rays and revision of the stump of the first and second rays. Specimen sent for pathologic inspection. Nipple was then irrigated with 3 L of normal sterile saline infused with 50,000 units of bacitracin. Following this the foot was redraped and the surgeon's top pleasure changed clean gloves. Any bleeding vessels identified were cauterized or ligated as encountered. Negative pressure wound therapy was then placed over the wound bed followed by Kerlix and an Paramjit wrap. The patient was noted tolerate both procedure and anesthesia well and the patient was transported from the operating room to recovery with vital signs stable.
[2017-06-10 22:27] VITALS: BP 130/84
--- NOTE | 2017-06-11 07:04 | PN- Housestaff ---
Jeff Shethselvin 06/11/17 0704: Subjective Follow-up For: Gas gangrene of the foot Uncontrolled diabetes Subjective: I have seen and examined the patient. no cc. good apeptite. on wound vacc. will to STR after clusore surgery on Friday Review of Systems Constitutional: Reports: see HPI. Objective Last 24 Hrs of Vital Signs/I&O Vital Signs Date Time Temp Pulse Resp B/P B/P Pulse O2 O2 Flow FiO2 Mean Ox Delivery Rate 06/11 0928 Room Air Room Air 06/11 0916 Room Air Room Air 06/11 0710 98.3 90 20 126/70 94 Room Air 06/10 2227 98.2 83 18 130/84 99 06/10 1452 99.0 85 18 122/84 97 Room Air Intake & Output 06/11 1600 06/11 0800 06/11 0000 Intake Total 340 120 Output Total 350 400 Balance -10 -280 Intake, IV 220 Intake, Oral 120 120 Output, Other 100 Output, Urine 350 300 Physical Exam General Appearance: Alert, Oriented X3, Cooperative, No Acute Distress Other Physical Findings: HEENT: Atraumatic, PERRLA, EOMI Neck: Supple Cardiovascular: Regular Rate, Normal S1, Normal S2 Lungs: Clear to Auscultation, Normal Air Movement Abdomen: Normal Bowel Sounds, Soft, No Tenderness Extremities: No Clubbing, No Cyanosis, left foot dressing intact., underwent repeat debridement today with wound vac in place Assessment/Plan Assessment: 56 yo M with h/o T2DM c/b neuropathy not on any meds, previous right leg cellulitis with abscess requiring I&D (2015), is sent in by PCP for evaluation of gangrene of left foot second toe. Injury to left 2nd toe on 4 months ago. Around friday started noticing discoloration. VS at admission Tmax 99, HR 100- 110, BP 140/70, sats 94% RA. Exam: AAO, obese male in no distress, is anxious of losing his toe, no pallor or lymphadenopathy, Chest clear, Heart S1S2 regular, Abd soft, distended, NT. Skin: warm and dry, Capillary refill < 2 secs.LE: Left foot - diffuse swelling with 2nd toe necrotic/gangrenous purple discoloration, cold, no sensation, ruptured bullae noted to the dorsal aspect of the foot with reddish blue discoloration and serosanguinous discharge, with open areas noted to the plantar aspect and an area of fluctuance on the plantar aspect of the base of the great toe. Erythema is extending into the left anterior leg with diffuse swelling of the leg. Peripheral pulse difficult to palpate on the left foot, well felt on the right foot.Labs: WBC 21.9, bands 3, ESR 107, macrocytic anemia, glucose 234, lactic acid 1.6. Left foot xray: prominent soft tissue swelling of forefoot with soft tissue gas surrounding second digit and extending proximally at dorsum of foot along the metatarsal level, no erosive osseous changes. Left LE doppler- no DVT. 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 Noncompliance with diabetic medications being the major contributing factor. He did have leukocytosis of 22 with evidence of gas in the soft tissues on Xray. * Underwent repeat debridement yesterday * wound closure on Friday and then going to rehab * Continue Unasyn 3 g IV every 6 - pending sensitivities * OR culture showed heavy growth of group B and staph aureus, we will follow up on sensitivity results * PICC line placed yesterday * PT following Uncontrolled diabetes Stopped taking diabetic medications due to financial issues. Used to follow previously. * Fingersticks were 189, 189, 189 * HbA1C 11%. * Continue Levemir 15 units at bedtime * Continue NovoLog sliding scale * on board, we'll follow up on her recommendation DVT prophylaxis SC lovenox Code status Full Code Problem List: 1. Gas gangrene 2. Diabetic neuropathy 3. Diabetes mellitus Pain Ratin Pain Location: left foot Pain Goal: Pain 4 or less Pain Plan: same Tomorrow's Labs & Rationales: Vern Gomez MD 06/11/17 1458: Attending MD Review Statement Attending Statement Attending MD Statement: examined this patient, discuss w/resident/PA/ELECTRIC LINEMAN, agreed w/resident/PA/ELECTRIC LINEMAN, discussed with family, reviewed EMR data (avail), discussed with nursing, discussed with case mgmt, amended to note Attending Assessment/Plan: The patient was seen and discussed with house staff. To go to OR again 06/13 for partial wound closure. Patient has many questions regarding STR. Continue Unasyn as per ID.
[2017-06-11 07:10] VITALS: BP 126/70
--- NOTE | 2017-06-11 08:36 | PN- Diabetes ---
Assessment/Plan Assessment: patient has had diabetes type 2, however, he hasn't been on medications due to cost and insurance reason. He presented with lesion in his left foot x 2 days. He was admitted for left second toe gangrene with cellulitis. His HbA1c was 11%. He underwent toes amputation and then open transmetatarsal amputation left foot on 06/10/2017. Levemir was increased to 18 units daily, Novolog coverage before meals was adjusted. He is on Novolog coverage at bedtime as well. His FSGs were 124, 112, 131 and 170. Plan: continue the current insulin regimen for now; monitor FSGs. will follow. Subjective Subjective: His glucose level has been controlled. Objective Last 24 Hrs of Vital Signs/I&O Vital Signs Date Time Temp Pulse Resp B/P B/P Pulse O2 O2 Flow FiO2 Mean Ox Delivery Rate 06/11 0710 98.3 90 20 126/70 94 Room Air 06/10 2227 98.2 83 18 130/84 99 06/10 1452 99.0 85 18 122/84 97 Room Air Intake & Output 06/11 1600 06/11 0800 06/11 0000 Intake Total 340 120 Output Total 350 400 Balance -10 -280 Intake, IV 220 Intake, Oral 120 120 Output, Other 100 Output, Urine 350 300 Findings Pertinent Lab/Francis Results: Laboratory Tests 06/10 1640 Hematology ESR Westergren (0 - 10 MM) 125 H
--- NOTE | 2017-06-11 12:59 | RADIOLOGY REPORT ---
EXAMINATION: XR FOOT, LEFT CLINICAL INFORMATION: Diabetic with debrided wound on the left foot. Presumptive diagnosis of gas gangrene status post debridement. COMPARISON: Left foot films from 06/05/2017. TECHNIQUE: AP, lateral, and oblique views of the left foot. FINDINGS: The patient is now status post proximal metatarsal amputation of the first through fifth digits with soft tissue drain seen in place. Small locules of air are seen at the amputation margin, consistent with postoperative change. Small plantar calcaneal spur is seen. Arteriovascular calcifications are seen in the soft tissues. IMPRESSION: Small locules of air are seen at the amputation margin status post transmetatarsal amputations of the first through fifth digits, presumably representing postoperative change. Close clinical correlation is requested.
[2017-06-11 14:15] VITALS: BP 110/56
[2017-06-11 22:55] VITALS: BP 125/75
--- NOTE | 2017-06-12 07:13 | PN- Housestaff ---
Candido Sheth 06/12/17 0713: Subjective Follow-up For: Gas gangrene of the foot Uncontrolled diabetes Subjective: I have seen and examined the patient. He is NPO for surgery today. Review of Systems Constitutional: Reports: see HPI. Objective Last 24 Hrs of Vital Signs/I&O Vital Signs Date Time Temp Pulse Resp B/P B/P Pulse O2 O2 Flow FiO2 Mean Ox Delivery Rate 06/13 0632 98.8 93 18 118/70 94 Room Air 06/12 2237 99.2 92 18 110/64 95 Room Air 06/12 1720 97.9 90 18 110/70 96 Room Air 06/12 1425 98.6 90 20 120/75 95 Room Air 06/12 1022 Room Air Room Air Intake & Output 06/13 0800 06/13 0000 06/12 1600 Intake Total 100 600 Output Total Balance 100 600 Intake, IV 100 600 Intake, Oral 0 Physical Exam General Appearance: Alert, Oriented X3, Cooperative Other Physical Findings: HEENT: Atraumatic, PERRLA, EOMI Neck: Supple Cardiovascular: Regular Rate, Normal S1, Normal S2 Lungs: Clear to Auscultation, Normal Air Movement Abdomen: Normal Bowel Sounds, Soft, No Tenderness Extremities: No Clubbing, No Cyanosis, left foot dressing intact., underwent repeat debridement today with wound vac in place Current Medications: Current Medications Sig/Musa Start time Last Medication Dose Route Stop Time Status Admin Ampicillin Sodium/ 3,000 MG Q6 06/109 AC 06/13 Sulbactam Sodium IV 0607 Sodium Chloride 100 ML Benzocaine/Menthol 1 OSCAR Q2P PRN 06/09 2030 AC 06/12 PO 2105 Dextrose/Sodium 1,000 ML Q13H 06/12 0600 DC 06/12 Chloride IV 0551 Fentanyl Citrate 100 MCG .STK-MED ONE 06/12 1506 DC IM 06/12 1507 Hydromorphone HCl 2 MG .STK-MED ONE 06/12 1651 DC IM 06/12 1652 Insulin Aspart 0 TIDAC/HS 06/12 2100 AC SC Insulin Detemir 18 UNITS AT BEDTIME 06/07 2200 AC 06/12 SC 2130 Insulin Human Regular 0 Q6 06/11 2359 DC 06/12 SC 1141 Midazolam HCl 2 MG .STK-MED ONE 06/12 1507 DC IM 06/12 1508 Oxycodone/ 1 TAB Q6P PRN 06/06 1945 AC Acetaminophen PO Assessment/Plan Assessment: 56 yo M with h/o T2DM c/b neuropathy not on any meds, previous right leg cellulitis with abscess requiring I&D (2014), is sent in by PCP for evaluation of gangrene of left foot second toe. Injury to left 2nd toe on 4 months ago. Around friday started noticing discoloration. VS at admission Tmax 99, HR 100- 110, BP 140/70, sats 94% RA. Exam: AAO, obese male in no distress, is anxious of losing his toe, no pallor or lymphadenopathy, Chest clear, Heart S1S2 regular, Abd soft, distended, NT. Skin: warm and dry, Capillary refill < 2 secs.LE: Left foot - diffuse swelling with 2nd toe necrotic/gangrenous purple discoloration, cold, no sensation, ruptured bullae noted to the dorsal aspect of the foot with reddish blue discoloration and serosanguinous discharge, with open areas noted to the plantar aspect and an area of fluctuance on the plantar aspect of the base of the great toe. Erythema is extending into the left anterior leg with diffuse swelling of the leg. Peripheral pulse difficult to palpate on the left foot, well felt on the right foot.Labs: WBC 21.9, bands 3, ESR 107, macrocytic anemia, glucose 234, lactic acid 1.6. Left foot xray: prominent soft tissue swelling of forefoot with soft tissue gas surrounding second digit and extending proximally at dorsum of foot along the metatarsal level, no erosive osseous changes. Left LE doppler- no DVT. 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 Noncompliance with diabetic medications being the major contributing factor. He did have leukocytosis of 22 with evidence of gas in the soft tissues on Xray. * Underwent repeat debridement yesterday * wound closure today and then going to rehab * Continue Unasyn 3 g IV every 6 - for 4 weeks * OR culture showed heavy growth of group B and staph aureus, we will follow up on sensitivity results * PICC line placed * PT following Uncontrolled diabetes Stopped taking diabetic medications due to financial issues. Used to follow previously. * Fingersticks were 189, 189, 189 * HbA1C 11%. * Continue Levemir 15 units at bedtime * Continue NovoLog sliding scale * on board, we'll follow up on her recommendation DVT prophylaxis SC lovenox Code status Full Code Problem List: 1. Diabetes mellitus 2. Gas gangrene Pain Ratin Pain Location: right foot Pain Goal: Pain 4 or less Pain Plan: same Tomorrow's Labs & Rationales: cbc bep Vern Espinoza MD 06/12/17 2340: Attending MD Review Statement Attending Statement Attending MD Statement: examined this patient, discuss w/resident/PA/BUSINESS AREA MANAGER, agreed w/resident/PA/BUSINESS AREA MANAGER, reviewed EMR data (avail), discussed with nursing, discussed with case mgmt, amended to note Attending Assessment/Plan: The patient was seen and discussed with house staff, nursing and case management. Agree with the plan of care as outlined. To go to [facility] for rehab when stable post operatively.
[2017-06-12 07:28] VITALS: BP 128/74
--- NOTE | 2017-06-12 09:09 | PN- Diabetes ---
Assessment/Plan Assessment: patient has had diabetes type 2, however, he hasn't been on medications due to cost and insurance reason. He presented with lesion in his left foot x 2 days. He was admitted for left second toe gangrene with cellulitis. His HbA1c was 11%. He underwent toes amputation and then open transmetatarsal amputation left foot on 06/10/2017. Levemir was increased to 18 units daily, Novolog coverage before meals was adjusted. He is on Novolog coverage at bedtime as well. His FSGs were controlled. Now he is kept NPO for procedure and is receiving D51/2 NS and RISS every 6 hours. His FSGs were 182, 208, 229 and 162. Plan: 1. After he is back from OR and when he is ready to eat, please restart him on previous insulin regimen--- Levemir 18 units daily, Novolog coverage before meals ( starting 6 units when his FSG is between 80 and 150) and Novolog coverage at bedtime; 2. if he is medically stable for diacharge, if he will go to rehab, please keep him on the same insulin regimen as inpatient. If he will go home, due to the cost, he will be on metformin 1000 mg twice a day ( with breakfast and with dinner), Glimepiride 2 mg twice a day ( before breakfast and before dinner); 3. f/u in office after discharge. Subjective Subjective: He is going to OR again this afternoon. Objective Last 24 Hrs of Vital Signs/I&O Vital Signs Date Time Temp Pulse Resp B/P B/P Pulse O2 O2 Flow FiO2 Mean Ox Delivery Rate 06/12 0728 98.3 89 18 128/74 96 06/11 2255 98.9 92 18 125/75 97 Room Air 06/11 1415 98.4 90 20 110/56 96 Room Air 06/11 0928 Room Air Room Air 06/11 0916 Room Air Room Air Intake & Output 06/12 1600 06/12 0800 06/12 0000 Intake Total 335 120 Output Total 5 500 Balance 330 -380 Intake, IV 305 Intake, Oral 30 120 Number 0 Bowel Movements Output, 5 Drainage Output, Urine 500 Findings Pertinent Lab/Francis Results: Laboratory Tests 06/12 0600 Hematology CBC w Diff Pending WBC Pending RBC Pending Hgb Pending Hct Pending MCV Pending MCH Pending RDW Pending Plt Count Pending MPV Pending PUBS MCHC Pending
[2017-06-12 09:22] LABS: ABSOLUTE BASOPHIL COUNT 0 /CUMM (0.0-0.2); ABSOLUTE EOSINOPHIL COUNT 0.2 /CUMM (0.0-0.7); ABSOLUTE GRANULOCYTE CT 11.8 /CUMM (1.4-6.5); ABSOLUTE LYMPH COUNT 2.8 /CUMM (1.2-3.4); ABSOLUTE MONOCYTE COUNT 0.6 /CUMM (0.10-0.60); BASOPHIL % 0.2 % (0.0-2.0); EOSINOPHIL % 1.6 % (0-5); GRANULOCYTE % 76.1 % (42.2-75.2); HEMATOCRIT 33.8 % (42-52); MEAN CORPUSCULAR HGB 32.2 PG (27.0-31.0); MEAN CORPUSCULAR VOLUME 94.8 FL (80.0-94.0); MEAN PLATELET VOLUME 8.9 FL (7.4-10.4); PLATELET COUNT 326 /CUMM (130-400); RED BLOOD CELL CT 3.57 /CUMM (4.70-6.10); WHITE BLOOD CELL COUNT 15.6 /CUMM (4.8-10.8)
--- NOTE | 2017-06-12 12:05 | PN- Infect Dx ---
Subjective Subjective: Afebrile without complaints Objective Last 24 Hrs of Vital Signs/I&O Vital Signs Date Time Temp Pulse Resp B/P B/P Pulse O2 O2 Flow FiO2 Mean Ox Delivery Rate 06/12 1022 Room Air Room Air 06/12 0728 98.3 89 18 128/74 96 06/11 2255 98.9 92 18 125/75 97 Room Air 06/11 1415 98.4 90 20 110/56 96 Room Air Intake & Output 06/12 1600 06/12 0800 06/12 0000 Intake Total 335 120 Output Total 5 500 Balance 330 -380 Intake, IV 305 Intake, Oral 30 120 Number 0 Bowel Movements Output, 5 Drainage Output, Urine 500 Physical Exam Other Physical Findings: He appears comfortable in no acute distress Extremities left foot dressing intact, with wound VAC in place; PICC in the right upper extremity with no inflammation at the site Results Last 24 Hours of Lab Results: Laboratory Tests 06/12 0600 Hematology CBC w Diff NO MAN DIFF REQ WBC (4.8 - 10.8 /CUMM) 15.6 H RBC (4.70 - 6.10 /CUMM) 3.57 L Hgb (14.0 - 18.0 G/DL) 11.5 L Hct (42 - 52 %) 33.8 L MCV (80.0 - 94.0 FL) 94.8 H MCH (27.0 - 31.0 PG) 32.2 H RDW (11.5 - 14.5 %) 13.0 Plt Count (130 - 400 /CUMM) 326 MPV (7.4 - 10.4 FL) 8.9 Gran % (42.2 - 75.2 %) 76.1 H Lymphocytes % (20.5 - 51.1 %) 18.0 L Monocytes % (1.7 - 9.3 %) 4.1 Eosinophils % (0 - 5 %) 1.6 Basophils % (0.0 - 2.0 %) 0.2 Absolute Granulocytes (1.4 - 6.5 /CUMM) 11.8 H Absolute Lymphocytes (1.2 - 3.4 /CUMM) 2.8 Absolute Monocytes (0.10 - 0.60 /CUMM) 0.6 Absolute Eosinophils (0.0 - 0.7 /CUMM) 0.2 Absolute Basophils (0.0 - 0.2 /CUMM) 0 PUBS MCHC (33.0 - 37.0 G/DL) 34.0 Last 24 Hours of Francis Results: No new cultures Assessment/Plan Impression: Stable status post open left transmetatarsal amputation 2 days ago for gas gangrene/osteomyelitis, with his OR cultures positive for MSSA and Group B strep. He is apparently scheduled for a return to the OR later today or tomorrow for wound closure. He remains afebrile on Unasyn, with his white blood cell count still elevated, though slightly decreased from the previous value. He will require a 4 week course of IV antibiotics postoperatively for presumed residual osteomyelitis. Suggestion: 1. Await return to the OR later today or tomorrow 2. Continue Unasyn to plan on a 4 week course of antibiotics from his last debridement 3. Will need a weekly ESR while on antibiotics
[2017-06-12 14:25] VITALS: BP 120/75
[2017-06-12 17:20] VITALS: BP 110/70
--- NOTE | 2017-06-12 17:57 | Cons- Vascular Surgery ---
General Information and HPI Consulting Request Date of Consult: 06/12/17 Requested By: Vern Espinoza MD History of Present Illness: 56-year-old man with history of diabetes who about 4 months ago had a trauma to the left plantar surface of the foot. This became and nonhealing wound and ultimately became infected. The patient presented to the hospital with severe infection of the left foot leukocytosis and fever. He has undergone transmetatarsal amputation of the left foot. I was asked to see the patient regarding adequacy of blood flow to the left foot. Allergies/Medications Allergies: Coded Allergies: NO KNOWN ALLERGIES (04/20/15) Home Med List: No Known Home Medications Past History Medical History Blood Transfusion Hx: No Neurological: NONE EENT: NONE Cardiovascular: NONE Respiratory: NONE Gastrointestinal: NONE Hepatic: NONE Renal: NONE Musculoskeletal: NONE Psychiatric: NONE Endocrine: diabetes Blood Disorders: NONE Cancer(s): NONE PHOTO LAB MANAGER/Reproductive: NONE Surgical History Pertinent Surgical History: tonsillectomy Family History Relations & Conditions If Any: SISTER FH: diabetes mellitus Psychosocial History Where Do You Live? Home Who Do You Live With? self Services at Home: None Primary Language: Romanian Smoking Status: Never Smoked Living Will? no Functional Ability ADLs Independent: dressing, eating, toileting, bathing. Ambulation: independent IADLs Independent: shopping, housework, finances, food prep, telephone, transportation , medication admin. Review of Systems Review of Systems: Patient denies headache, dizziness, cough, palpitation, diarrhea or constipation Exam & Diagnostic Data Vital Signs and I&O Vital Signs Date Time Temp Pulse Resp B/P B/P Pulse O2 O2 Flow FiO2 Mean Ox Delivery Rate 06/12 1425 98.6 90 20 120/75 95 Room Air 06/12 1022 Room Air Room Air 06/12 0728 98.3 89 18 128/74 96 06/11 2255 98.9 92 18 125/75 97 Room Air Intake & Output 06/12 1600 06/12 0800 06/12 0000 06/11 1600 06/11 0800 06/11 0000 Intake Total 600 335 120 870 340 120 Output Total 5 500 350 400 Balance 600 330 -380 870 -10 -280 Intake, IV 600 305 150 220 Intake, Oral 0 30 120 720 120 120 Number 0 0 Bowel Movements Output, 5 Drainage Output, Other 100 Output, Urine 500 350 300 Physical Exam: Patient is alert and oriented 3 Lungs: Clear to auscultation bilaterally Cardiovascular: Regular rate and rhythm Abdomen: Soft, nontender nondistended Extremities: Palpable femoral pulses bilaterally. Palpable right dorsalis pedis and was sutured tibial artery. I am unable to examine the left foot as it is dressed. Assessment/Plan Assessment/Plan 56-year-old man with diabetes and nonhealing wound of the left plantar foot which became infected and underwent transmetatarsal amputation by Dr. Henriquez. Please obtain arterial ultrasound of the left foot. I will follow with you after the results of the ultrasound. Thank you for asking me to be involved in the care of this patient Consult Acknowledgment - Thank you for your consult request. Attending MD Review Statement Attending Statement Attending MD Statement: examined this patient, discuss w/resident/PA/EXPOSURE MACHINE OPERATOR
[2017-06-12 22:37] VITALS: BP 110/64
--- NOTE | 2017-06-12 23:53 | Operative Report ---
Operative/Inv Procedure Report Surgery Date: 06/12/17 Name of Procedure: 1 Revisional incision and drainage deep to the deep fascial with exposure of the tendon and tendon sheath left foot 2 Delayed primary closure of open surgical wound left 3 Revision of TMA to Lisfanc's joint 4 Intra-operative application of negative pressure wound therapy 5 Intra-operative administration of ankle block anesthesia 6 Excisional debridement Pre-Operative Diagnosis: 1 Open, necrotic wound left foot 2 Osteomyelitis left foot Post-Operative Diagnosis: The same Estimated Blood Loss: less than 50ml Surgeon/Licensing Engineer: SAJAN LORENZ DPM Anesthesia: moderate sedation, block Operative/Procedure Note Note: After obtaining informed consent the patient was brought to the operating room and placed on the operating table in the supine position. The patient isn't securely fastened to the operating table utilizing safety belt. After administration of IV sedation, 10 mL of 0.5% Marcaine plain was infiltrated about the patient's left ankle. The left foot and ankle then scrubbed prepped and draped in usual aseptic manner. Attention was directed to the left foot, where a large full-thickness chronic was identified. A 15 blade was utilized sharply revised skin margins. The dissection was then carried down deep to the D fashion with exposure of the flexor and extensor tendon and tendon sheath multiple sites, both proximally and distally. All necrotic nonviable infected tissue sharply evacuated from the wound bed. Dissection and continued proximally to the level of the Lisfranc's joint where the proximal metatarsals were disarticulated and passed from the operative field. The medial cuneiform was also disarticulated and passed from the operative field. Specimen was sent for pathologic inspection. The open wound was then irrigated with 3 L of normal sterile saline infused with 50,000 units of bacitracin. Following this, the foot was redraped and the surgeon's top was changed clean gloves. Any bleeding vessels identified were cauterized or ligated as encountered. The plantar flap was then mobilized and advanced superiorly to cover the exposed joint. The deep side of the flap was reapproximated with 2-0 Vicryl. The septae stitches were reapproximated with 3-0 Vicryl. The remaining portion of open wound medially was then dressed with negative pressure wound therapy. The foot was and cover with Kerlix and an Paramjit wrap. The patient was noted tolerate both procedure and anesthesia well and the patient was transported from the operating room to recovery with vital signs stable and vascular status intact to the plantar flap.
[2017-06-13 06:32] VITALS: BP 118/70
--- NOTE | 2017-06-13 07:26 | PN- Housestaff ---
See Addendum Subjective Follow-up For: chantal alcala diabetes Subjective: i have seen and examined the patient. feeling ok todat. stable to go to srt Review of Systems Constitutional: Reports: see HPI. Objective Last 24 Hrs of Vital Signs/I&O Vital Signs Date Time Temp Pulse Resp B/P B/P Pulse O2 O2 Flow FiO2 Mean Ox Delivery Rate 06/13 1143 Room Air Room Air 06/13 0819 98.8 93 18 118/70 06/13 0632 98.8 93 18 118/70 94 Room Air 06/12 2237 99.2 92 18 110/64 95 Room Air 06/12 1720 97.9 90 18 110/70 96 Room Air Intake & Output 06/13 1600 06/13 0800 06/13 0000 Intake Total 100 Output Total Balance 100 Intake, IV 100 Physical Exam General Appearance: Alert, Oriented X3, Cooperative Cardiovascular: Regular Rate, Normal S1, Normal S2 Lungs: Clear to Auscultation, Normal Air Movement Abdomen: Normal Bowel Sounds, Soft, No Tenderness Assessment/Plan Assessment: 56 yo M with h/o T2DM c/b neuropathy not on any meds, previous right leg cellulitis with abscess requiring I&D (2015), is sent in by PCP for evaluation of gangrene of left foot second toe. Injury to left 2nd toe on 4 months ago. Around friday started noticing discoloration. VS at admission Tmax 99, HR 100- 110, BP 140/70, sats 94% RA. Exam: AAO, obese male in no distress, is anxious of losing his toe, no pallor or lymphadenopathy, Chest clear, Heart S1S2 regular, Abd soft, distended, NT. Skin: warm and dry, Capillary refill < 2 secs.LE: Left foot - diffuse swelling with 2nd toe necrotic/gangrenous purple discoloration, cold, no sensation, ruptured bullae noted to the dorsal aspect of the foot with reddish blue discoloration and serosanguinous discharge, with open areas noted to the plantar aspect and an area of fluctuance on the plantar aspect of the base of the great toe. Erythema is extending into the left anterior leg with diffuse swelling of the leg. Peripheral pulse difficult to palpate on the left foot, well felt on the right foot.Labs: WBC 21.9, bands 3, ESR 107, macrocytic anemia, glucose 234, lactic acid 1.6. Left foot xray: prominent soft tissue swelling of forefoot with soft tissue gas surrounding second digit and extending proximally at dorsum of foot along the metatarsal level, no erosive osseous changes. Left LE doppler- no DVT. 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 Noncompliance with diabetic medications being the major contributing factor. He did have leukocytosis of 22 with evidence of gas in the soft tissues on Xray. * Underwent repeat debridement yesterday * wound closure on Friday and then going to rehab * Continue Unasyn 3 g IV every 6 - pending sensitivities * OR culture showed heavy growth of group B and staph aureus, we will follow up on sensitivity results * PICC line placed yesterday * PT * status post revision and more debridemtn yesterday with wound vac. dc to STR today Uncontrolled diabetes Stopped taking diabetic medications due to financial issues. Used to follow previously. * Fingersticks were 189, 189, 189 * HbA1C 11%. * Continue Levemir 8units at bedtime * Continue NovoLog sliding scale * on board, we'll follow up on her recommendation DVT prophylaxis SC lovenox Code status Full Code Problem List: 1. Gas gangrene Pain Ratin Pain Location: left foot Pain Goal: Pain 4 or less Pain Plan: same Tomorrow's Labs & Rationales: amos
[2017-06-13 08:19] VITALS: BP 118/70
[2017-06-13 08:30] LABS: ABSOLUTE BASOPHIL COUNT 0 /CUMM (0.0-0.2); ABSOLUTE EOSINOPHIL COUNT 0.2 /CUMM (0.0-0.7); ABSOLUTE GRANULOCYTE CT 10.4 /CUMM (1.4-6.5); ABSOLUTE MONOCYTE COUNT 0.7 /CUMM (0.10-0.60); BASOPHIL % 0.4 % (0.0-2.0); EOSINOPHIL % 1.3 % (0-5); GRANULOCYTE % 78.2 % (42.2-75.2); MEAN CORPUSCULAR HGB 32.6 PG (27.0-31.0); MEAN CORPUSCULAR HGB CONC 34.4 G/DL (33.0-37.0); MEAN CORPUSCULAR VOLUME 94.7 FL (80.0-94.0); MEAN PLATELET VOLUME 8.9 FL (7.4-10.4); PLATELET COUNT 316 /CUMM (130-400); RBC DISTRIBUTION WIDTH 12.9 % (11.5-14.5); RED BLOOD CELL CT 3.38 /CUMM (4.70-6.10); WHITE BLOOD CELL COUNT 13.3 /CUMM (4.8-10.8)
[2017-06-13] MEDS ORDERED: UNASYN 3 GM VIAL3 GM IV ×3 (10:23→11:22)
[2017-06-13] MEDS ORDERED: PERCOCET 5-3251 EACH PO (10:23)
--- NOTE | 2017-06-13 10:24 | Patient Discharge Instructions ---
Discharge Instructions General Discharge Information You were seen/treated for: osteomylities dibates You had these procedures: necrotic tissue resection and wound vac placement Special Instructions: -Please follow-up with your primary care provider within 7 days after discharge. -Please follow-up with your travel accommodation inspector 7 days after discharge -Please follow-up with your podiatry surgeon 7 days after discharge regarding the wound VAC. -Please follow-up with your ID specialist 7 days after discharge. -Please follow-up with your vascular surgeon 7 days after discharge. -We have made changes to your home medications, please read the instructions carefully. -Please come back to the hospital if your symptoms got worse. -Please check weekly ESR for 4 weeks. Diet Recommended Diet: Diabetic Acute Coronary Syndrome Inclusion Criteria At DC or during hospital stay patient has or had the following: ACS DIAGNOSIS No Discharge Core Measures Meds if any: Prescribed or Continued at Discharge Meds if any: NOT Prescribed or Continued at Discharge Congestive Heart Failure Inclusion Criteria At DC or during hospital stay patient has or had the following: CHF DIAGNOSIS No Discharge Core Measures Meds if any: Prescribed or Continued at Discharge Meds if any: NOT Prescribed or Continued at Discharge Cerebrovascular accident Inclusion Criteria At DC or during hospital stay patient has or had the following: CVA/TIA Diagnosis No Discharge Core Measures Meds if any: Prescribed or Continued at Discharge Meds if any: NOT Prescribed or Continued at Discharge Venous thromboembolism Inclusion Criteria VTE Diagnosis No VTE Type NONE VTE Confirmed by (Test) NONE Discharge Core Measures - Per Current guidelines, there needs to be overlap - treatment for the first 5 days of Warfarin therapy. - If discharged on Warfarin prior to 5 days of - overlap therapy, the patient will need to be - assessed for post discharge needs including - *Post discharge parental anticoagulation - *Warfarin and/or parental anticoagulation education - *Follow up date to check INR post discharge At least 5 days overlap therapy as Inpatient No Meds if any: Prescribed or Continued at Discharge Note: Overlap Therapy is Warfarin and Anticoagulant Meds if any: NOT Prescribed or Continued at Discharge
[2017-06-13] MEDS ORDERED: NOVOLOG100 UNIT/2 SC (10:51)
[2017-06-13] MEDS ORDERED: LEVEMIR100 UNIT/1 SC (10:51)
== END 2017-06-13 13:35 | DRG 239 ==
LOC: ERH 16:05 → ERHI 19:25 → 2NB 19:25 → ENRESERV 21:38 → 2NB 22:57 → ENTRNSPT 06-06 15:50 → CMPTRNSPT 06-06 16:28 → 2NB 06-08 12:31 → DELTRNSPT 06-10 14:20 → ENTRNSPT 06-10 14:20 → CMPTRNSPT 06-10 14:52 → ENTRNSPT 06-12 17:04 → CMPTRNSPT 06-12 17:20 → 2NB 06-13 13:35
PROVIDERS: Internal Medicine; Physician Assistant Medical; Student in an Organized Health Care Education/Training Program
PROC: 0JXR0ZB Transfer Left Foot Subcutaneous Tissue and Fascia with Skin and Subcutaneous Tissue, Open Approach (ICD-10-PCS; 2017-05-13)
PROC: 0J9R0ZZ Drainage of Left Foot Subcutaneous Tissue and Fascia, Open Approach (ICD-10-PCS; principal; 2017-06-06)
PROC: 0Y6N0Z9 Detachment at Left Foot, Partial 1st Ray, Open Approach (ICD-10-PCS; 2017-06-06)
PROC: 0Y6N0ZB Detachment at Left Foot, Partial 2nd Ray, Open Approach (ICD-10-PCS; 2017-06-06)
PROC: 0Y6N0Z9 Detachment at Left Foot, Partial 1st Ray, Open Approach (ICD-10-PCS; 2017-06-10)
PROC: 0Y6N0ZB Detachment at Left Foot, Partial 2nd Ray, Open Approach (ICD-10-PCS; 2017-06-10)
PROC: 0Y6N0ZC Detachment at Left Foot, Partial 3rd Ray, Open Approach (ICD-10-PCS; 2017-06-10)
PROC: 0Y6N0ZD Detachment at Left Foot, Partial 4th Ray, Open Approach (ICD-10-PCS; 2017-06-10)
PROC: 0Y6N0ZF Detachment at Left Foot, Partial 5th Ray, Open Approach (ICD-10-PCS; 2017-06-10)
PROC: 0Y6N0Z0 Detachment at Left Foot, Complete, Open Approach (ICD-10-PCS; 2017-06-12)
DX: E11.52 Type 2 diabetes mellitus with diabetic peripheral angiopathy with gangrene (principal); A41.9 Sepsis, unspecified organism; M86.172 Other acute osteomyelitis, left ankle and foot; E11.40 Type 2 diabetes mellitus with diabetic neuropathy, unspecified; E66.9 Obesity, unspecified; L03.032 Cellulitis of left toe; Z91.120 Patient's intentional underdosing of medication regimen due to financial hardship
CPT/HCPCS: 2NBP; 2NBSP; 87070; 87075; 87184; 36415; 73630-LT; 73660-LT; 81001; 82436; 87040; 87071; 87147; 88304; 88305; 88307; 93005; 93010; 93925; 97116-GO; 97161-GP; C1769; J0131; J0713; J1650; J1815; J1885; J2001; J2543; J3370; J7040; J7042

== ENCOUNTER → 2017-08-19 | Day surgery (SDC) | payer OTHER ==
--- NOTE | 2017-08-15 08:51 | History & Physical Pre-Op ---
General Information and HPI History of Present Illness: Mr. Carvajal is a 57-year-old diabetic status post open TMA left foot who has completed course of IV antibiotics for an underlying osteomyelitis. The patient has been followed in the wound Center for periodic debridements and wound VAC dressing changes. The patient's inferior flap has in the interim becoming infected and now requires a revision with reapplication of the negative pressure wound therapy. The patient denies systemic signs of infection. The patient denies nausea vomiting fever chills. Allergies/Medications Allergies: Coded Allergies: NO KNOWN ALLERGIES (04/20/15) Home Med list Amoxicillin/Clavulanate Potass (Amox-Clav 875-125 MG Tablet) 875 MG-125 MG TABLET 1 TAB PO BID ABX (Reported) Insulin Glargine,Hum.rec.anlog (Lantus Solostar) 100 UNIT/ML (3 ML) INSULN.PEN 10 UNITS SC QPM DM (Reported) Metformin HCl 500 MG TABLET 2 TAB PO BID DM (Reported) Oxycodone HCl/Acetaminophen (Percocet 5-325 MG Tablet) 5 MG-325 MG TABLET 1 TAB PO PRN PAIN (Reported) Past History Medical History Neurological: NONE EENT: NONE Cardiovascular: NONE Respiratory: NONE Gastrointestinal: NONE Hepatic: NONE Renal: NONE Musculoskeletal: NONE Psychiatric: NONE Endocrine: diabetes Blood Disorders: NONE Cancer(s): NONE [employer] DIRECTOR/Reproductive: NONE History of MRSA: No History of VRE: No History of CDIFF: No Tetanus Vaccine: 04/27/15 Surgical History Pertinent Surgical History: tonsillectomy Past Family/Social History Family History Relations & Conditions if any SISTER FH: diabetes mellitus Psychosocial History Who Do You Live With? self Services at Home None Primary Language: Nauruan Living Will? no Functional Ability ADLs Independent: dressing, eating, toileting, bathing. Ambulation: independent IADLs Independent: shopping, housework, finances, food prep, telephone, transportation , medication admin. Review of Systems Review of Systems: Unremarkable except for that noted in history of present illness Exam & Diagnostic Data Physical Exam: Lungs clear bilaterally. Heart sounds rate and rhythm regular. Lower extremity physical exam demonstrates intact pedal pulses bilaterally. Pulses dorsalis pedis and posterior tibial arteries are palpable bilaterally. Patient without any sensory motor deficits. Deep tendon reflexes grossly intact. Patient noted to have a 10 cm x 3 cm Frank grade 2 ulceration. Necrosis and some erythema at the inferior margin of the flap. There is slough overlying a mixed granular fibrotic wound bed. No probing or undermining identified. Moderate amount of serous drainage identified. Assessment/Plan Assessment/Plan: Reinfected inferior flap left foot. A lengthy discussion reviewing both surgical and conservative options was held the patient at bedside and the patient elects to go forward with surgery despite the risks. As Ranked By This Provider Problem List: 1. Cellulitis 2. Other acute osteomyelitis, left ankle and foot Attending MD Review Statement Attending Statement Attending MD Statement: examined this patient
[~2017-08-19] VITALS: Ht 170.2 cm; Wt 90.7 kg
[~2017-08-19] MED LIST changes: +AMOX-CLAV 875-1 EACH PO; +GLUCOPHAGE1000 M1 PO; +LANTUS SOL100 UNIT/1 SC; +LEVEMIR100 UNIT/1 SC; +METFORMIN HCL500 M3 PO; +NOVOLOG100 UNIT/2 SC; +PERCOCET 5-3251 EACH PO; +UNASYN 3 GM VIAL3 GM IV
--- NOTE | 2017-08-19 13:23 | Operative Report ---
Operative/Inv Procedure Report Surgery Date: 08/19/17 Name of Procedure: 1 open incision and drainage deep to the D fashion with exposure of the flexor tendon and tendon sheath multiple sites left foot 2 intraoperative administration of negative pressure wound therapy 3 intraoperative administration of ankle block anesthesia 4 excisional debridement Pre-Operative Diagnosis: 1 open necrotic wound left foot 2 diabetic peripheral neuropathy Post-Operative Diagnosis: The same Estimated Blood Loss: less than 50ml Surgeon/Pr Manager: Martinez CURRY,Reid Ferguson DPM Anesthesia: moderate sedation, block Operative/Procedure Note Note: After performing obtaining informed consent the patient was brought to the operating room and placed on the operating table in the supine position. The patient isn't securely fastened to the operating table utilizing safety belt. After administration of IV sedation, 10 mL of 0.5% Marcaine plain was infiltrated about the patient's left ankle. Left foot and ankle within scrubbed prepped and draped in usual aseptic manner. Attention directed left foot, arch full-thickness chronic was identified. A 15 blade visualized sharply revised skin margins. Dissection was then carried down deep to the fashion with exposure of the flexor tendon and tendon sheath multiple sites, both proximally and distally. All necrotic nonviable infected tissue sharply evacuated from the wound bed. Nipple was then irrigated 3 L normal sterile saline fissure 50,000 units of bacitracin. Following this, the foot was redraped and surgeon's top was changed clean gloves. Any bleeding vessels identified were cauterized or ligated as encountered. Negative pressure wound therapy was then placed overlying the open wound followed by the application of Kerlix and Coban. Patient noted tolerate both procedure and anesthesia well and the patient was transported Room to recovery with vital signs stable.
== END ==
LOC: UNDOADMIN 08-15 03:50 → SDA 08-15 03:50 → UNDOADMIN 01:06 → EDSTATUS 07:00 → STS 07:00
DX: E11.621 Type 2 diabetes mellitus with foot ulcer (principal); E11.42 Type 2 diabetes mellitus with diabetic polyneuropathy; L97.523 Non-pressure chronic ulcer of other part of left foot with necrosis of muscle; I96 Gangrene, not elsewhere classified; Z79.84 Long term (current) use of oral hypoglycemic drugs; L03.116 Cellulitis of left lower limb; Z79.4 Long term (current) use of insulin
CPT/HCPCS: 87070; 87075; 87184; 87071; 87147; J0690; J1885; J2001; J2250

== ENCOUNTER → 2017-08-26 | Day surgery (SDC) | payer OTHER ==
[~2017-08-26] VITALS: Ht 170.2 cm; Wt 97.5 kg
--- NOTE | 2017-08-26 07:16 | History & Physical Pre-Op ---
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 The patient has been undergoing negative pressure wound therapy with a recent debridement and the wound bed is now optimized for definitive closure consisting of split-thickness skin grafting. Allergies/Medications Allergies: Coded Allergies: NO KNOWN ALLERGIES (04/20/15) Home Med list Amoxicillin/Clavulanate Potass (Amox-Clav 875-125 MG Tablet) 875 MG-125 MG TABLET 1 TAB PO BID ABX (Reported) Insulin Glargine,Hum.rec.anlog (Lantus Solostar) 100 UNIT/ML (3 ML) INSULN.PEN 10 UNITS SC QPM DM (Reported) Metformin HCl 500 MG TABLET 2 TAB PO BID DM (Reported) Oxycodone HCl/Acetaminophen (Percocet 5-325 MG Tablet) 5 MG-325 MG TABLET 1 TAB PO PRN PAIN (Reported) Past History Medical History Neurological: NONE EENT: NONE Cardiovascular: NONE Respiratory: NONE Gastrointestinal: NONE Hepatic: NONE Renal: NONE Musculoskeletal: NONE Psychiatric: NONE Endocrine: diabetes Blood Disorders: NONE Cancer(s): NONE [employer]ANT/Reproductive: NONE History of MRSA: No History of VRE: No History of CDIFF: No Tetanus Vaccine: 04/27/15 Surgical History Pertinent Surgical History: tonsillectomy Past Family/Social History Family History Relations & Conditions if any SISTER FH: diabetes mellitus Psychosocial History Who Do You Live With? self Services at Home None Primary Language: Sami Living Will? no Functional Ability ADLs Independent: dressing, eating, toileting, bathing. Ambulation: independent IADLs Independent: shopping, housework, finances, food prep, telephone, transportation , medication admin. Review of Systems Review of Systems: Unremarkable except noted Exam & Diagnostic Data Last 24 Hrs of Vital Signs/I&O Intake & Output / 0800 03/06 0000 08/25 1600 Intake Total Output Total Balance Patient 215 lb Weight Physical Exam: Lungs clear bilaterally. Heart sounds rate and rhythm regular. Lower extremity physical exam demonstrates intact pedal pulses bilaterally. Pulses dorsalis pedis and posterior tibial arteries are palpable bilaterally. Patient without any motor deficits noted. Sensory deficit identified in a moccasin type distribution bilaterally.. Deep tendon reflexes are intact. 10 cm x 3 cm Frank grade 2 ulceration identified at the distal stump of the left midfoot site. There is superficial slough overlying an otherwise uniformly granulated wound bed. No probing or undermining identified. No cellulitis noted. Minimal serous drainage identified. Assessment/Plan Assessment/Plan: Nonhealing ulcer left foot. A lengthy discussion reviewing both surgical and conservative options was held the patient bedside and the patient elects to go forward surgery despite the risks. As Ranked By This Provider Problem List: 1. Non-pressure chronic ulcer of left heel and midfoot with fat layer exposed Attending MD Review Statement Attending Statement Attending MD Statement: examined this patient
[2017-08-26 10:17] LABS: ABSOLUTE BASOPHIL COUNT 0 /CUMM (0.0-0.2); ABSOLUTE EOSINOPHIL COUNT 0.2 /CUMM (0.0-0.7); ABSOLUTE GRANULOCYTE CT 5.2 /CUMM (1.4-6.5); ABSOLUTE LYMPH COUNT 2.6 /CUMM (1.2-3.4); ABSOLUTE MONOCYTE COUNT 0.5 /CUMM (0.10-0.60); BASOPHIL % 0.3 % (0.0-2.0); EOSINOPHIL % 2.1 % (0-5); GRANULOCYTE % 61.5 % (42.2-75.2); HEMATOCRIT 40.1 % (42-52); MEAN CORPUSCULAR HGB 30.8 PG (27.0-31.0); MEAN CORPUSCULAR HGB CONC 33.5 G/DL (33.0-37.0); MEAN CORPUSCULAR VOLUME 91.7 FL (80.0-94.0); MEAN PLATELET VOLUME 9.2 FL (7.4-10.4); PLATELET COUNT 160 /CUMM (130-400); RBC DISTRIBUTION WIDTH 13.5 % (11.5-14.5); RED BLOOD CELL CT 4.37 /CUMM (4.70-6.10); WHITE BLOOD CELL COUNT 8.4 /CUMM (4.8-10.8)
--- NOTE | 2017-08-26 12:04 | Operative Report ---
Operative/Inv Procedure Report Surgery Date: 08/26/17 Name of Procedure: 1 split-thickness skin graft left foot 2 intraoperative administration of negative pressure wound therapy 3 intraoperative administration of ankle block anesthesia Pre-Operative Diagnosis: 1 chronic, mild nonhealing ulcer left foot 2 diabetic peripheral neuropathy Post-Operative Diagnosis: The same Estimated Blood Loss: less than 50ml Surgeon/Drill Bit Sharpener: Martinez CURRY,Reid Ferguson Anesthesia: moderate sedation, block Operative/Procedure Note Note: After obtaining informed consent the patient was brought to the operating room and placed on the operating table in the supine position. The patient isn't securely fastened to the operating table utilizing safety belt. After administration of IV sedation, 10 mL of 0.5% Marcaine plain was infiltrated about the patient's left ankle. The left foot and ankle and lower extremity within scrubbed prepped and draped in usual aseptic manner. Attention directed to the left foot, where a 10 cm x 3 cm Frank grade 2 ulceration was identified. There is superficial slough overlying an otherwise uniformly granular wound bed. Minimal serous drainage identified. A curet was utilized to gently debride the wound bed free of any overlying slough. Next, the wound was irrigated with 3 L normal sterile saline fissure 50,000 units of bacitracin. Following this, a 17 1000 of an inch split-thickness skin graft was elevated at the lateral aspect the right leg and meshed a ratio of 1/2-1. It was then placed at the recipient site and fixated at its margins with skin aime. Followed by application of Adaptic and negative pressure wound therapy. The donor site was dressed with copious bacitracin and Xeroform. The foot was then dressed with Kerlix and Paramjit wrap. Patient noted tolerate both procedure and anesthesia well and the patient was transported from the operating room to recovery with vital signs stable.
== END ==
LOC: STS 02:45
PROVIDERS: Podiatrist Foot & Ankle Surgery
DX: E11.621 Type 2 diabetes mellitus with foot ulcer (principal); L97.422 Non-pressure chronic ulcer of left heel and midfoot with fat layer exposed; E11.42 Type 2 diabetes mellitus with diabetic polyneuropathy; Z79.4 Long term (current) use of insulin
CPT/HCPCS: 36415; J0131; J0690; J1885; J2001; J2250